=== PATIENT | female | born 1975 | race Asian ===

== ENCOUNTER 2017-05-15 21:00 | Inpatient (IN) | payer BC ==
[2017-05-15] MEDS ORDERED: Methylergonovine 0.2 MG/1 ML Amp IM PRN (23:31)
[2017-05-15] MEDS ORDERED: Carboprost Tromethamine 250 MCG/1 ML Amp IM PRN (23:31)
[2017-05-15] MEDS ORDERED: Acetaminophen 325 MG Tab PO PRN (23:31)
[2017-05-15] MEDS ORDERED: Lactated Ringers 500 ML IV ONE (23:31)
[2017-05-15] MEDS ORDERED: Misoprostol 400 MCG (4 X 100 MCG TAB) RECTAL PRN (23:31)
[2017-05-15] MEDS ORDERED: fentaNYL 100 MCG/2 ML SDV IVPUSH PRN (23:31)
[2017-05-15] MEDS ORDERED: Lidocaine 1% 30 ML SDV INJECT PRN (23:31)
[2017-05-15] MEDS ORDERED: Nalbuphine 20 MG/1 ML Amp IVPUSH PRN (23:31)
[2017-05-15] MEDS ORDERED: Ondansetron 4 MG/2 ML SDV IV PRN (23:31)
[2017-05-15] MEDS: Lactated Ringers 1,000 ML IV SCH (23:35)
[2017-05-15] MEDS ORDERED: Oxytocin/Normal Saline 30 UNIT/500 ML BAG IV SCH (23:45)
[2017-05-16] MEDS ORDERED: Nalbuphine 20 MG/1 ML Amp IM PRN ×2 (00:29→00:36)
[2017-05-16] MEDS ORDERED: fentaNYL 100 MCG/2 ML SDV ONE (02:24)
[2017-05-16] MEDS ORDERED: EPINEPHrine 1 MG/ML SDV ONE (02:24)
--- NOTE | 2017-05-16 02:55 | PCM.SN ---
- Free Text/Narrative Note: Intrathecal, sitting position, sterile prep and drape. 1% lidocaine w bicarb for skinwheal to L2 L3 interspace, introducer, 24 ga pencan x1. Pos CSF, neg heme, neg parasthesia. 0.1 ml pf 1:1000 epi, 0.4 ml pf ns , 15 mcg pf sufenta, 35 mcg pf fentanyl, and 6 mg of 0.75% pf bupivacaine injected after CSF aspiration. Pt to L lateral position. Procedure time 9260 to 3600
[2017-05-16] MEDS: Lactated Ringers 1,000 ML IV SCH ×5 (03:01→20:47)
[2017-05-16] MEDS: ePHEDrine 50 MG/ML SDV IVPUSH ONE ×2 (03:44→04:14)
[2017-05-16] MEDS ORDERED: ceFAZolin 2 GM in Premix Bag 1 BAG IV ONE (09:01)
[2017-05-16] MEDS ORDERED: Citric Acid/Sodium Citrate Solution 30 ML Cup PO ONE (09:01)
--- NOTE | 2017-05-16 09:06 | PCM.PRNOTE ---
- Free Text/Narrative Note: Section Operative Report Date of Surgery: 05/16/2017 Surgeon: Marnie Kidd MD Property Administrator: Lucian Portillo MD Pre-Operative Diagnosis: at 38w1d, failure to descend Maternal fatigue Post-Operative Diagnosis: at 38w1d, failure to descend Maternal fatigue hemorrhage Procedure Performed: Primary low transverse section Anesthesia: Spinal EBL: 1500 mL IVF: 1700 mL Drains: Traore catheter with 150 mL of urine output Specimens: None Complications: None apparent Findings: Live female infant in breech position; APGARS: 9 at 1 minutes and 9 at 5 minutes. Weight: 3585 grams or 7 pounds 14.6 ounces. Normal uterus, tubes , and ovaries. Indication and Consent: Patient progressed to complete dilation and pushed for over 2 hours with no progress then last 30-40 minutes of pushing. A vacuum was applied for 3 contractions but then was unable to be replaced due to caput and positioning. Patient was also placed in hands and knees position with no success. Due to lack of progress and maternal fatigue, the decision was made to proceed with delivery. She was counseled on the risks of . The patient understood that the risks of section include, but are not limited to, visceral or vascular injury, infection, blood loss and need for blood transfusion, prolonged hospitalization, and reoperation. The patient stated understanding and desired to proceed. All questions were answered. Procedure in Detail: The patient was taken to the operating room and spinal anesthesia was performed. Two grams of cefazolin (Ancef) were given for infection prophylaxis. She was then prepped and draped in routine fashion in dorsal supine position with a left puri tilt. Traore catheter and pneumoboots were placed. A Pfannenstiel skin incision was made with a scalpel. The incision was carried down to the fascia sharply. The fascia was incised and extended laterally. The superior aspect of the fascia was grasped with Kye clamps; the underlying rectus muscle and pyramidalis was dissected off with sharp and blunt technique. In a similar fashion, the inferior aspect of the fascia was elevated with Kye clamps and the rectus muscle was dissected off. Hemostasis was achieved with the Bovie. The rectus musculature was in the midline down to the level of the pubic symphysis. Pre-peritoneal fatty tissue was bluntly dissected to expose the peritoneum. The peritoneum was found to be free of adherent bowel or bladder tissue and entered bluntly. The peritoneal opening was then extended superiorly and inferiorly to the bladder reflection with good visualization of the bladder. The Gato retractor was inserted. Intraabdominal survey revealed scant, clear peritoneal fluid and thinned-out lower uterine segment. The vesicouterine peritoneum was opened with a scissors and the bladder flap was developed. The lower uterine segment was incised with a scalpel. The amniotic sac was ruptured with an Allis clamp and meconium stained fluid was noted. The uterine incision was extended bluntly with lateral and upward traction. The fetus was in vertex. The headwas elevated out of the maternal pelvis with special attention paid to avoid using the uterine incision as a fulcrum. The infant was delivered with minimal difficulty. Bulb suctioning of the infant's nose and mouth was performed on the operative field. Cord blood was collected. The cord was clamped and cut in standard fashion, and the was handed over to the awaiting nursery staff. IV oxytocin was initiated to facilitate uterine contractions. The placenta was delivered intact with manual message of the uterine fundus along with gentle cord traction. The inside of the uterus was gently wiped with a lap sponge to assure complete removal of remaining products of conception. The uterine incision was closed with 0 -Vicryl suture in a running locked fashion. A second imbricating layer of 0-Vicryl was also placed. Additional suture were placed along the left corner of the uterus as there was a significant bleeding from a vessel. The incision was inspected and hemostasis was achieved. The ovaries and tubes were visualized and found to be normal. The blood clots and fluid were wiped out of the abdomen and pelvis with moist laparotomy sponges. The uterine incision was re-inspected along with all other incised surfaces and good hemostasis was confirmed. The Gato retractor was removed. Peritoneal layer was closed with 2-0 Vicryl. The fascia was then closed with 2-0 looped PDS suture with care not to include any underlying abdominal contents. The skin was closed with yesenia. Sponge and instrument counts were reported as correct times two. Pt tolerated procedure well and was taken to PACU in stable condition. Marnie Kidd MD
--- NOTE | 2017-05-16 09:43 | HP ---
CHIEF COMPLAINT: Contractions that began earlier today and continued into this evening HISTORY OF PRESENT ILLNESS: The patient is a 41-year-old, G4, P 3-0-0-2, regularly a patient of Dr. Hooker, currently at 38 and / day of intrauterine confirmed with 23 and 1/7th week ultrasound. Contractions began earlier today and continued into this evening, around 6 PM were noted to be 2 to 3 minutes apart and her decided to bring her in. She denies any vaginal bleeding or leakage of fluid. movement has been good. She denies any fevers or chills, nausea or vomiting, shortness of breath or chest pain, headaches, or blurry vision. HISTORY: She has had 3 previous pregnancies. The first was a term delivery at 40 weeks and 0 days gestation on 11/24/1994, delivered via normal spontaneous vaginal delivery in the [facility]. weight 3538 g. The patient denies any , intrapartum, or complications with this delivery. The second was a term, 40 weeks and 0 days, normal spontaneous vaginal delivery on 02/13/1997 in the [facility]. weight 3039 g. The patient denies any , intrapartum, or complications with that delivery. The third was a term, 38 weeks and 0 days normal spontaneous vaginal delivery on 05/31/1999 in the [facility]. weight was 3084 g. The patient denies any or complications with this delivery, but notes that at time of delivery she was told there was a 50-50 chance for her and her baby to survive for unknown reasons and that they wanted to transfer her. She denies any complications with this . PAST MEDICAL HISTORY: History of chickenpox as a child. MEDICATIONS: 1. vitamins. 2. Iron supplementation. 3. Vitamin B6. 4. Fish oil plus vitamin D. ALLERGIES: No known allergies. PAST SURGICAL HISTORY: No pertinent surgical history. FAMILY HISTORY: Mother, heart disease. Oldest son, TB meningitis as an and at age 10 from complications. Negative for defects, multiple seizures, cystic fibrosis, bleeding problems, clotting disorders, or Down syndrome. SOCIAL HISTORY: Lives in [place] with her , Thierno. in 07/2014, met through the online dating site and he is a retired grant. She moved here in 06/2015 from the [facility] and this is their first child together. They are in the process of trying to move more of her family to [place] for better job opportunities. Slovak is not her first language and so, there are some language barrier issues. REVIEW OF SYSTEMS: Pertinent positives and negatives as listed under the HPI. PHYSICAL EXAMINATION: Vital signs: Temperature 97.8 degrees Fahrenheit, heart rate 86, blood pressure 112/80, and respiratory rate 20. General: Pleasant, well-appearing female. HEENT: Atraumatic. Anicteric sclerae. Oropharynx without erythema. No obvious deformities in external ears. Neck: Supple without adenopathy. Heart: Regular rate and rhythm, S1 and S2. Lungs: Clear to auscultation bilaterally. No increased work of breathing, rales, rhonchi, or wheezes noted. Abdomen: Gravid, soft, and nontender. Neurologic: No obvious neurologic deficits. No clonus. Cervical: 4 cm dilated, 80% effaced, vertex suspected, -2 station. Extremities: No edema, erythema, or tenderness noted in any extremities. Skin: Warm and dry. Well perfused. LABORATORY DATA: Blood type, B positive. Antibody screen negative. Rubella immune. Syphilis negative. Hepatitis B negative. HIV negative. Gonorrhea and chlamydia, not detected. TSH normal at 1.48. Hepatitis C negative. Wet prep negative for Trichomonas, clue cells, fungal elements, and budding yeast. One-hour glucose passed. GBS negative. heart monitoring: heart tones tracing at 130 beats per minute at baseline. Moderate [id number]-jq-[id number] variability and accelerations are noted. Manassa tracing contractions every 5 minutes. ASSESSMENT: 1. Intrauterine at 38 and 1/7th's week gestation confirmed with 23 and 1/7th's week ultrasound. 2. G4, P 3-0-0-2. 3. Blood type B positive, rubella immune, GBS negative. 4. Advanced maternal age. 5. Anemia during . PLAN: Admit the patient for observation to Labor and Delivery floor. We will serially evaluate the patient and determine if she is in true labor. The patient has been informed of the plan, and she is in agreement and her questions have been answered. The history and physical assessment and plan are per Dr. Kidd and this note is being scribed for Dr. Kidd. [facility] /[id number] Agree with medical student assessment and plan. Patient was seen and examined by me. Assessment and plan are per my direction. Marnie Kidd MD [facility]
[2017-05-16] MEDS ORDERED: Naloxone 2 MG/2 ML Syringe IVPUSH PRN (10:48)
[2017-05-16] MEDS ORDERED: diphenhydrAMINE 50 MG/ML SDV IVPUSH PRN (10:48)
[2017-05-16] MEDS ORDERED: ePHEDrine 50 MG/ML SDV IVPUSH PRN (10:48)
[2017-05-16] MEDS ORDERED: Acetaminophen/oxyCODONE 325-5 MG Tab PO PRN (10:48)
[2017-05-16] MEDS: Simethicone 80 MG Tab.Chew PO SCH ×3 (15:12→23:33)
[2017-05-16] MEDS ORDERED: Oxytocin/Normal Saline 30 UNIT/500 ML BAG IV SCH (15:30)
[2017-05-16] MEDS: Ondansetron 4 MG/2 ML SDV IV PRN (15:43)
[2017-05-16] MEDS ORDERED: Ketorolac 30 MG/ML SDV IVPUSH ONE (20:33)
[2017-05-17] MEDS: Ketorolac 30 MG/ML SDV IVPUSH SCH ×3 (02:37→15:17)
[2017-05-17] MEDS: Lactated Ringers 1,000 ML IV SCH ×2 (04:13→06:04)
[2017-05-17] MEDS: Prenatal Multivitamin with Calcium/Folic Acid/Iron Tab PO SCH (08:50)
[2017-05-17] MEDS: Simethicone 80 MG Tab.Chew PO SCH ×4 (08:50→22:00)
[2017-05-17] MEDS: Docusate Sodium 100 MG Cap PO PRN ×2 (08:50→23:23)
--- NOTE | 2017-05-17 08:58 | DEL ---
DATE: 05/16/2017 PREDELIVERY DIAGNOSES: 1. Intrauterine at 38-2/7 weeks' gestation confirmed with 23-1/7 weeks' ultrasound. 2. 4, para 3-0-0-2. 3. Blood type B positive, rubella immune, and group B Streptococcus negative. 4. Advanced maternal age. 5. Anemia during . POSTDELIVERY DIAGNOSES: 1. Intrauterine at 38-2/7 weeks' gestation confirmed with 23-1/7 weeks' ultrasound. 2. 4, para 3-0-0-2. 3. Blood type B positive, rubella immune, and group B Streptococcus negative. 4. Advanced maternal age. 5. Anemia during . 6. Failure of fetus to descend. 7. Maternal fatigue. PROCEDURE PERFORMED: Pitocin augmentation and attempted vacuum-assisted delivery. ANESTHESIA: The patient did receive an intrathecal in the first stage of labor. SUMMARY OF EVENTS: The patient is a 41-year-old G4, P3-0-0-2, presenting initially with intrauterine at 38-1/7 weeks' intrauterine gestation on the evening of 05/15/2017. She presented with contractions that had begun earlier in the day on the and continued into the evening. At 6:00 p.m., it was noted that the contractions were 2 to 3 minutes apart, and her brought her in to be evaluated. She was admitted for observation to Labor and Delivery floor for serial evaluation to determine if she was in true labor. She was noted to have regular contractions, was having cervical change and subsequently spontaneous rupture of membranes. The intrathecal was given, and the patient continued to be serially evaluated, requiring 2 doses of ephedrine for low blood pressures. Around 7:00 a.m. on the morning of 05/16/2017, the patient was found to be complete and began pushing with contractions. Dr. Kidd and I were called to the room. We both donned sterile gown and gloves and evaluated the patient in the second stage of labor. With pushing with contractions, vertex was suspected, and large caput was noted. The patient pushed for approximately 2 hours. A vacuum-assisted delivery was attempted and was not successful. The vacuum was applied for a total of 8 minutes. Good descent was initially noted. After initial descent, the low profile Kiwi vacuum could no longer be placed due to head position. The soft-cup vacuum was applied but could not maintain suction due to caput and hair. Vacuum delivery was abandoned. Patient was placed on hand and knees and pushed for an additional 20 minutes. She was then returned to supine position. No descent of the head was noted. The decision was made to proceed to section due to failure of fetus to descend and maternal fatigue. Please see operative note. The history and assessment are per Dr. Kidd and this note is being scribed per Dr. Kidd. MOD /[id number] Agree with student note above. I was present for the entire procedure. Note has been edited by me. Marnie Kidd MD [facility]ENTER[facility]artha
--- NOTE | 2017-05-17 10:01 | PN ---
DATE: 05/17/2017 SUBJECTIVE: Postop day 1 status post primary low-transverse section. Concerns per nursing staff include low hemoglobin levels and low urine output overnight, requiring a bolus of fluid. No other concerns per nursing staff. Concerns per patient include increased incisional pain. This pain is mostly well controlled on current medications. No other concerns per patient. She is ambulating and tolerating a general diet. Traore catheter still in place. She denies fevers or chills, headaches or blurry vision, shortness of breath or chest pain, sharp abdominal pains, or erythema or tenderness in any of her extremities. She also denies dizziness or lightheadedness. She had some nausea and vomited yesterday evening following surgery but this has subsided entirely. She is passing gas but has not had a bowel movement. She notes mild lochia. OBJECTIVE: Vital Signs: Temperature 98.6 Fahrenheit, heart rate 83, blood pressure 95/62, respiratory rate 18, and oxygen saturation 98%. General: Pleasant, well-appearing female. Heart: Regular rate and rhythm, S1 and S2. 2/6 holosystolic murmur over the upper left sternal border, presumed to be a flow murmur due to anemia. Lungs: Clear to auscultation bilaterally. No increased respiratory effort, rales, rhonchi, or wheezing noted. Abdomen: Soft, mildly tender to palpation in the lower abdomen, nondistended. The uterus is firm and 1 fingerbreadth below the umbilicus. No excessive tenderness by palpation. The dressing over incision is clean, dry, and intact. Neurologic: No obvious neurologic deficits. Extremities: Trace edema in the upper and lower extremities bilaterally. No tenderness or erythema in any extremity. Skin: Warm, dry, and well perfused. Normal color, no pallor. LABORATORY DATA: Drawn this morning. White blood cell count 17.1, hemoglobin 7.0, platelet count 162, and neutrophil percent 81.7. ASSESSMENT: 1. Postoperative day 1 status post primary low-transverse section. 2. 4, para 4-0-0-3. 3. Advanced maternal age. 4. Anemia in . 5. hemorrhage, 1500 mL. Anemia of blood loss. 6. Blood type B positive, rubella immune, group B streptococcus negative. PLAN: Initiate iron supplementation 325 mg b.i.d. and vitamin. Possibility of needing a blood transfusion if she becomes symptomatic later today. Risks and benefits were discussed with the patient and she expressed understanding. Discussed risk of transfusion reaction, risk of contraction of blood born disease or new antibodies, fluid overload. Also discussed benefits of treating severe anemia to help with symptoms, , and prevent high output cardiac failure. We will closely monitor for signs and symptoms related to her anemia. Continue routine and postoperative cares. Please see orders for further details. The plan has been discussed with the patient and she is in agreement. The history, physical, and assessment and plan are per Dr. Bocanegra and this note is being scribed for Dr. Bocanegra. Patient seen and examined. Agree with note scribed on my behalf by Stephanie Tristan MS3 -billiard table assembler 05/18/17 0552 MODL /[id number] MTDD
[2017-05-17] MEDS: Acetaminophen/oxyCODONE 325-5 MG Tab PO PRN ×3 (11:42→22:00)
[2017-05-17] MEDS: Ferrous Sulfate 325 MG Tab PO SCH ×2 (11:42→17:45)
[2017-05-17] MEDS: Sodium Chloride 0.9% 10 ML Syringe FLUSH PRN (15:16)
[2017-05-17] MEDS ORDERED: Ferrous Sulfate 325 MG Tab PO SCH (18:00)
[2017-05-17] MEDS: Ibuprofen 800 MG Tab PO PRN (23:23)
[2017-05-18] MEDS: Acetaminophen/oxyCODONE 325-5 MG Tab PO PRN ×5 (02:00→21:37)
[2017-05-18] MEDS: Simethicone 80 MG Tab.Chew PO SCH ×4 (08:43→21:35)
[2017-05-18] MEDS: Prenatal Multivitamin with Calcium/Folic Acid/Iron Tab PO SCH (08:46)
[2017-05-18] MEDS: Ibuprofen 800 MG Tab PO PRN ×2 (08:46→21:35)
[2017-05-18] MEDS: Docusate Sodium 100 MG Cap PO PRN ×2 (08:54→21:35)
--- NOTE | 2017-05-18 08:55 | PN ---
DATE: 05/18/2017 SUBJECTIVE: Postoperative day #2, status post primary low transverse section. The patient did receive 2 units of blood overnight for symptoms of anemia including lightheadedness, dizziness, nausea without vomiting, visual changes, and shortness of breath. This morning, the patient states that these symptoms have improved, although she does still have some lightheadedness and dizziness when ambulating. No other concerns per nursing staff. No concerns per patient. She continues to have mild incisional pain that is improving and well controlled on current medications. She is ambulating and tolerating a general diet. She denies headaches or blurry vision, shortness of breath or chest pain, nausea or vomiting, sharp abdominal pains, dysuria, or erythema or tenderness in any extremity. She notes edema in her upper and lower extremities bilaterally. She continues to pass gas but has not had a bowel movement. She notes mild lochia. OBJECTIVE: Vital Signs: Temperature 98.8 Fahrenheit, heart rate 65, blood pressure 105/66, respiratory rate 16, and oxygen saturation 98%. General: A pleasant well-appearing female. Heart: Regular rate and rhythm. S1 and S2. 2/6 holosystolic murmur noted over the upper left sternal border, presumed to be a flow murmur due to anemia. Lungs: Bilateral crackles, right worse than left. No increased respiratory effort, rhonchi, or wheezing noted. Abdomen: Soft, appropriately tender in the lower abdomen, nondistended. The uterus is firm and at the level of the umbilicus. No excessive tenderness by palpation. The dressing over the incision is clean, dry, and intact. Neurologic: No obvious neurologic deficits. Extremities: Trace edema in the upper and lower extremities bilaterally. No tenderness or erythema. Skin: Warm, dry, and well perfused. Normal color. LABORATORY DATA: Drawn this morning: White blood cell count 14.1, Hemoglobin 10.3, Platelets 166 ASSESSMENT: 1. Postoperative day #2, status post primary low transverse section. 2. G4, P4-0-0-3. 3. Advanced maternal age. 4. Anemia in . 5. hemorrhage, 1500 mL anemia of blood loss. 6. Blood type B positive, rubella immune, and Group B streptococcus negative. PLAN: Incision dressing removed by Dr. Bocanegra, instructed the patient to shower , and will apply Aquacel dressing over her incision to be kept on until her follow-up visit for staple removal. We will closely monitor for signs and symptoms related to her anemia. Continue routine and postoperative cares. Please see orders for further details. The plan has been discussed with the patient, and she expressed understanding and is in agreement. We anticipate discharge tomorrow. The history, physical, assessment and plan are per Dr. Bocanegra, and this note is being scribed for Dr. Bocanegra. Patient seen and examined. Agree with note as described on my past by Stephanie Tristan MS3. -metal spray operator 05/18/17 1442 MODL /[id number] MTDD
[2017-05-18] MEDS: Ferrous Sulfate 325 MG Tab PO SCH ×2 (09:45→17:46)
[2017-05-18] MEDS: Ondansetron 4 MG/2 ML SDV IV PRN (12:45)
[2017-05-18] MEDS: Sodium Chloride 0.9% 10 ML Syringe FLUSH PRN ×2 (12:46→21:33)
[2017-05-19] MEDS: Ibuprofen 800 MG Tab PO PRN (04:54)
[2017-05-19] MEDS: Acetaminophen/oxyCODONE 325-5 MG Tab PO PRN ×2 (04:55→08:38)
[2017-05-19] MEDS: Prenatal Multivitamin with Calcium/Folic Acid/Iron Tab PO SCH (08:37)
[2017-05-19] MEDS: Simethicone 80 MG Tab.Chew PO SCH (08:37)
[2017-05-19] MEDS: Ferrous Sulfate 325 MG Tab PO SCH (08:37)
[2017-05-19] MEDS: Docusate Sodium 100 MG Cap PO PRN (08:37)
[2017-05-19] MEDS ORDERED: Morphine PF 1 MG/ML Amp ONE (11:02)
[2017-05-19] MEDS ORDERED: ePHEDrine 50 MG/ML SDV IV ONE (11:02)
[2017-05-19] MEDS ORDERED: Dexamethasone 4 MG/ML SDV IV ONE (11:02)
[2017-05-19] MEDS ORDERED: Ondansetron 4 MG/2 ML SDV IV ONE (11:02)
[2017-05-19] MEDS ORDERED: Lactated Ringers 1,000 ML IV ONE (11:02)
[2017-05-19] MEDS ORDERED: fentaNYL 100 MCG/2 ML SDV ITHECAL ONE (11:08)
[2017-05-19] MEDS ORDERED: EPINEPHrine 1 MG/ML SDV ONE (11:08)
--- NOTE | 2017-05-20 04:55 | DISCH ---
ADMITTING DIAGNOSES: 1. Intrauterine at 38 and 1/7 weeks' gestation confirmed with a 23 and 1/7 week's ultrasound. 2. 4, para 3-0-0-2. 3. Advanced maternal age. 4. Anemia in . 5. Blood type B positive, rubella immune, Group B streptococcus negative. DISCHARGE DIAGNOSES: 1. Intrauterine at 38 and 2/7 weeks' gestation confirmed with a 23 and 1/7 week's ultrasound, delivered. 2. Blood type B positive, rubella immune, Group B streptococcus negative. 3. 4, para 4-0-0-3. 4. Primary low transverse section due to failure of fetus to descend and maternal fatigue. 5. Advanced maternal age. 6. Anemia in . 7. hemorrhage, 1500 mL, anemia of blood loss. 8. Blood transfusion x2 due to symptomatic anemia. PROCEDURE PERFORMED: Pitocin augmentation. Attempted vacuum-assisted delivery followed by primary low transverse section per Dr. Kidd, no complications. Intrathecal in labor, spinal for . Blood transfusion 2 units SUMMARY OF HOSPITAL COURSE: The patient was admitted on the above day with the above diagnosis, and after a failed trial of labor due to failure of fetus to descend and maternal fatigue, she underwent a primary low transverse section yielding a female scores 9 and 9, weighing 7 pounds 15 ounces, 3585 g with an EBL of 1500 mL under spinal anesthesia. Postoperative day 1 and 2, please see progress note. Postoperative day 3, the date of discharge, the patient was tolerating p.o., ambulating, urinating with mild dysuria and passing flatus. No bowel movement yet. She has some minimal incisional pain that is well controlled on current medications. She continues to have some mild lightheadedness when ambulating, but otherwise, her anemia is asymptomatic. She denies fevers or chills, shortness of breath, nausea or vomiting, sharp abdominal pains or erythema or tenderness in any extremity. She notes that the swelling in her upper and lower extremities bilaterally is improving. She also notes some intermittent left-sided chest pain when she holds baby, suspect this is musculoskeletal in origin. She had questions pertaining to the use of her breast pump. The patient did receive 2 units of blood on postop day 1 for symptoms related to her anemia. She is and maternal child bonding is appropriate. DISCHARGE CONDITION: Good Vital Signs: Temperature 99.1 Fahrenheit, heart rate 68, blood pressure 123/68, respiratory rate 18, and oxygen saturation 96%. Lungs: Bibasilar crackles, improved from yesterday. Normal respiratory effort. Heart: S1 and S2, 2/6 holosystolic murmur noted at the left upper sternal border, presumed to be a flow murmur due to her anemia. Abdomen: Soft, nondistended, mildly tender to palpation in the lower abdomen. Uterus is firm and at the level of the umbilicus. No excessive tenderness to palpation. Aquacel dressing is clean, dry, and intact. Extremities: Trace edema in upper and lower extremities bilaterally, improving. No erythema or tenderness in any extremity. LABORATORY DATA: Drawn on May 18, 2017. Postop day #2; white blood cell count 14.1, hemoglobin 10.3, and platelets 166. Post transfusion. DISCHARGE INSTRUCTIONS: 1. Diet as tolerated. 2. Activity: No lifting more than 20 pounds, no sit ups or straining. Pelvic rest for the next 6 weeks with immediate return to fertility was discussed with the patient. 3. Reasons to go to the emergency room were discussed including, but not limited to temperature greater than 100.4 Fahrenheit, foul-smelling discharge, red hot tender breasts or increased vaginal bleeding, increasing pain, drainage, or redness around her incision. 4. Dr. Bocanegra provided instruction on dressing care, consisting of keeping Aquacel dressing applied until it is removed in clinic Wednesday for staple removal. After that, patient can use light pads to cover incision as needed, to be removed before showering. 5. Nursing staff provided instruction on use of breast pump. DISCHARGE MEDICATIONS: 1. [id number] Tylenol or ibuprofen for pain. 2. Iron sulfate 325 b.i.d. x6 weeks. 3. vitamins x6 weeks. It was discussed with the patient in the interim reasons to return or go to the emergency room in regard to her infant. DISPOSITION: Home FOLLOW UP: 2 days from now on Wednesday, May 21, 2017, for staple removal for mother and well-child check for baby. The patient expressed understanding and agrees with the above treatment plan. The history, physical, assessment, and plan are per Dr. Bocanegra, and this note is being scribed for Dr. Bocanegra. Patient seen and examined. Agree with note as described on my behalf by Stephanie Tristan, MS3. -dance hall hostess 05/20/17 1304 MODL /[id number] MTDD
== END 2017-05-19 11:56 | disposition home or self-care (01) | DRG 540 ==
LOC: DL.OBCHECK 21:00 → DL.OB 22:56 → OBSVTOIN 05-16 10:13
PROVIDERS: ADMIT Family Medicine; ATTEND Family Medicine
PROC: 10D00Z1 Extraction of Products of Conception, Low, Open Approach (ICD-10-PCS; principal; 2017-05-16)
PROC: 00HU33Z Insertion of Infusion Device into Spinal Canal, Percutaneous Approach (ICD-10-PCS; 2017-05-16)
PROC: 3E0R3BZ Introduction of Anesthetic Agent into Spinal Canal, Percutaneous Approach (ICD-10-PCS; 2017-05-16)
DX: O64.8XX0 Obstructed labor due to other malposition and malpresentation, not applicable or unspecified (principal); Z3A.38 38 weeks gestation of pregnancy; Z37.0 Single live birth; O66.5 Attempted application of vacuum extractor and forceps; O75.81 Maternal exhaustion complicating labor and delivery; O72.1 Other immediate postpartum hemorrhage; O99.02 Anemia complicating childbirth
CPT/HCPCS: 36415; 36430; 85025; 85027; 86850; 86900; 86901; 86920; 86922; 94010; A9270-GY; J0171; J0690; J1100; J1200; J1885; J2274; J2300; J2405; J2590; J3010; J7050; J7120; P9016

== ENCOUNTER 2018-05-30 11:56 | Day surgery (SDC) | payer BC, MEDICAID ==
[2018-05-30] MEDS ORDERED: Propofol 200 MG/20 ML SDV IV ONE (11:57)
[2018-05-30] MEDS ORDERED: fentaNYL 100 MCG/2 ML SDV IV ONE (11:57)
[2018-05-30] MEDS ORDERED: Dexamethasone 4 MG/ML SDV IV ONE (11:57)
[2018-05-30] MEDS ORDERED: Lidocaine 2% 20 ML MDV INJECT ONE (11:57)
[2018-05-30] MEDS ORDERED: Ondansetron 4 MG/2 ML SDV IV ONE (11:57)
[2018-05-30] MEDS ORDERED: Ketorolac 30 MG/ML SDV IVPUSH ONE (11:57)
[2018-05-30] MEDS ORDERED: Midazolam 1 MG/ML 2 ML SDV IV ONE (11:57)
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
[2018-05-30] MEDS ORDERED: Lactated Ringers 1,000 ML IV SCH (12:30)
[2018-05-30] MEDS ORDERED: ceFAZolin 2 GM in Premix Bag 1 BAG IV ONE (12:46)
[2018-05-30] MEDS ORDERED: Sodium Chloride 0.9% 10 ML Syringe FLUSH PRN (12:46)
[2018-05-30] MEDS ORDERED: Oxytocin/Normal Saline 30 UNIT/500 ML BAG IV SCH (13:00)
[2018-05-30] MEDS ORDERED: Ferric Subsulfate Topical Soln 8 GM (8 ML) Bottle ONE (13:54)
[2018-05-30] MEDS ORDERED: Silver Nitrate Applicator Each ONE (13:54)
[2018-05-30] MEDS ORDERED: Oxytocin/Normal Saline 30 UNIT/500 ML BAG ONE (13:54)
[2018-05-30] MEDS ORDERED: Ferric Subsulfate Topical Soln 8 GM (8 ML) Bottle TOP ONE (15:15)
--- NOTE | 2018-05-30 16:11 | PCM.PRNOTE ---
- Free Text/Narrative Note: Operative Report 05/30/18 Start: 1503 Stop: 1516 Preoperative Diagnosis: incomplete Postoperative Diagnosis: same Procedure Performed: Suction Dilation and Curettage Anesthesia: general Surgeons: Dr. Hernandez and Dr. Bocanegra Franchise Broker: Gato Jacobson MS3 Specimens: Intrauterine contents Complications: none apparent Drains: Straight catheter placed at the beginning of case with return of minimal clear urine output Estimated Blood Loss: 100 cc Findings: incomplete with odor consistent with infection Indication for procedure: Incomplete . Risks, benefits, indications and alternatives of the chosen procedure were discussed in detail as outlined in the preoperative history and physical. Procedure in Detail: The patient was taken to the operating room where anesthesia was obtained. She was prepped and draped in routine fashion in dorsal lithotomy position. Sterile speculum was placed in the vagina and the anterior lip of the cervix was than grasped with a single tooth tenaculum. The uterus was sounded to 4 cm's. The cervix was dilated to allow passage of a 12 mm suction curette. The curette was advanced to the uterine fundus. Tissue consistent with products of conception was returned. Additional pass with the suction curette was performed. The sharp curette was than advanced to the uterine fundus and gentle but firm traction was placed against it along all uterine surfaces until good uterine cry was noted. Suction curette was once again advanced to empty the uterus of any remaining products. A moderate amount of tissue returned and was sent to pathology. The uterus was sounded to 9 cm's after the procedure. All instruments were removed from the uterus, cervix and vaginal after hemostasis was noted. The patient tolerated the procedure well. Sponge, lap, and needle counts were reported as correct times two. The patient received antibiotics preoperatively. She will be followed with routine post operative cares and we anticipate discharge later today when ambulating, voiding, tolerating regular diet and having her pain controlled. She was given doxycycline and metronidazole for 7 days post op.
== END 2018-05-30 18:30 | disposition home or self-care (01) ==
LOC: DL.SDS 11:56
PROVIDERS: ATTEND Family Medicine
DX: O03.4 Incomplete spontaneous abortion without complication (principal)
CPT/HCPCS: 36415; 85025; J0690; J1100; J1885; J2250; J2405; J2590; J2704; J3010; J7120

== ENCOUNTER 2018-06-02 14:18 | Emergency (ER) | payer MEDICAID ==
--- NOTE | 2018-06-02 14:25 | EDM.PDOC ---
ED HPI GENERAL MEDICAL PROBLEM - General Stated Complaint: NECK AND SHOULDER PAIN Time Seen by Provider: 06/02/18 14:25 Source of Information: Reports: Patient, RN, RN Notes Reviewed History Limitations: Reports: No Limitations - History of Present Illness INITIAL COMMENTS - FREE TEXT/NARRATIVE: Pt to ER with c/o left upper back pain, left sided neck pain, and pain wrapping into the left anterior chest wall. Patient states she had a D&C on 05/30/18. She states she has been having the pain since that time. She denies lifting anything recently, but she does hold her daughter on that side to feed her a bottle (child is 1 yr old). She denies any previous health problems, and only takes iron supplements, vitamin D and multivitamins for medications. Currently taking Doxycycline after D & C. Patient denies fever, chills, N/V/D. Does admit to SOB at times. She denies a blood clot in the past. Onset: Gradual Left Neck Pain Score (Numeric/FACES): 5 - Related Data Allergies Allergy/AdvReac Type Severity Reaction Status Date / Time No Known Allergies Allergy Verified 06/02/18 14:24 Home Meds: Home Meds Docusate Sodium [Colace] 100 mg PO Q12H PRN cap 05/18/17 [Rx] Ferrous Sulfate 325 mg PO BIDMEALS tablet 05/18/17 [Rx] Ibuprofen [IJD: Ibuprofen] 600 mg PO Q6H PRN tablet 05/18/17 [Rx] Cholecalciferol (Vitamin D3) [Vitamin D3] 1,000 units PO DAILY 05/30/18 [History ] Multivitamin with Minerals [Multivitamins with Minerals] 1 tab PO DAILY [History] Past Medical History - Past Health History Medical/Surgical History: Denies Medical/Surgical History HEENT History: Reports: Impaired Vision Other HEENT History: WEARS GLASSES. 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: Musculoskeletal History: Reports: Other (See Below) Other Musculoskeletal History: NERVE PAIN IN RIGHT WRIST, GOES TO PT Neurological History: Reports: Other (See Below) Other Neuro History: STROKE RIGHT SIDE AT AGE 34 Psychiatric History: Reports: Depression Other Psychiatric History: DEPRESSION IN THE PAST Endocrine/Metabolic History: Reports: None Hematologic History: Reports: Anemia Immunologic History: Reports: None Oncologic (Cancer) History: Reports: None Dermatologic History: Reports: None - Infectious Disease History Infectious Disease History: Reports: Chicken Pox - Past Surgical History HEENT Surgical History: Reports: None Cardiovascular Surgical History: Reports: None GI Surgical History: Reports: None Female Surgical History: Reports: Section Neurological Surgical History: Reports: None Musculoskeletal Surgical History: Reports: None Social & Family History - Family History Cardiac: Reports: Other (See Below) Other Cardiac Family History: mother- heart disease Respiratory: Reports: Other (See Below) Other Respiratory Family Hisory: first child had TB meningitis as an and at age 12 of complications - Caffeine Use Caffeine Use: Reports: Coffee ED ROS GENERAL - Review of Systems Review Of Systems: ROS reveals no pertinent complaints other than HPI. ED EXAM, UPPER BACK/NECK PAIN - Physical Exam Exam: See Below Exam Limited By: Language Barrier General Appearance: Alert, WD/WN, No Apparent Distress Eye Exam: Bilateral Eye: EOMI, Normal Inspection Ears Exam: Normal External Exam, Hearing Grossly Normal Nose Exam: Normal Inspection Throat/Mouth Exam: Normal Inspection, Normal Voice, No Airway Compromise Head Exam: Atraumatic, Normocephalic Neck Exam: Non-Tender, Full Range of Motion, Normal Alignment, Normal Inspection Nexus Criteria: No: Posterior, Midline Cervical Tenderness, Evidence of Intoxication, Altered Level of Consciousness, Focal Neurological Deficit, Painful Distraction Injuries Cardiovascular/Respiratory: Regular Rate, Rhythm, No M/R/G, Normal Peripheral Pulses, No JVD, Normal Breath Sounds, No Respiratory Distress GI/Abdominal: Normal Bowel Sounds, Soft, Non-Tender (Female) Exam: Deferred Rectal (Female) Exam: Deferred Back Exam: Normal Inspection, Full Range of Motion, NT Extremities: Normal Inspection, Normal Range of Motion, Non-Tender, No Pedal Edema, Normal Capillary Refill Neurologic: installation coordinator II-XII nml As Tested, No Motor/Sensory Deficits, Alert, Normal Mood/Affect, Oriented x 3 Psychiatric: Normal Affect, Normal Mood Skin Exam: Normal Color, Warm/Dry Lymphatic: No Adenopathy EKG INTERPRETATION EKG Date: 06/02/18 Time: 14:41 Rhythm: NSR Rate (Beats/Min): 68 [place]: Normal P-Wave: Present QRS: Normal ST-T: Normal QT: Normal Comparison: NA - No Prior EKG Course - Vital Signs Last Recorded V/S: Last Vital Signs Temp 99.1 F 06/02/18 15:18 Pulse 64 06/02/18 16:16 Resp 16 06/02/18 16:16 BP 111/76 06/02/18 16:16 Pulse Ox 99 06/02/18 16:16 - Orders/Labs/Meds Orders: Active Orders 24 hr Category Date Time Status EKG Documentation Completion [RC] STAT Care 06/02/18 14:40 Active Chest wo Cont [CT] Urgent Exams 06/02/18 15:46 Taken Labs: Laboratory Tests 06/02/18 06/02/18 06/02/18 Range/Units 14:55 14:55 14:55 WBC 7.6 (5.0-10.0) 10^3/uL RBC 3.81 L (4.2-5.4) 10^6/uL Hgb 10.1 L (12.0-16.0) g/dL Hct 31.4 L (37.0-47.0) % MCV 82.4 (80-100) fL MCH 26.5 L (27.0-34.0) pg MCHC 32.2 L (33.0-35.0) g/dL Plt Count 347 (150-450) 10^3/uL Neut % (Auto) 71.8 (42.2-75.2) % Lymph % (Auto) 18.9 L (20.5-50.1) % [place] % (Auto) 7.0 (2-8) % Eos % (Auto) 1.9 (1.0-3.0) % Baso % (Auto) 0.4 (0.0-1.0) % D-Dimer, Quantitative 210 (0-400) ng/mL Sodium 136 (135-145) mmol/L Potassium 3.0 L (3.6-5.0) mmol/L Chloride 101 (101-111) mmol/L Carbon Dioxide 23.0 (21.0-31.0) mmol/L Anion Gap 15.0 BUN 11 (7-18) mg/dL Creatinine 0.8 (0.6-1.3) mg/dL Est Cr Clr Drug Dosing 67.14 mL/min Estimated GFR (MDRD) > 60 BUN/Creatinine Ratio 13.75 Glucose 107 H (74-105) mg/dL Calcium 8.9 (8.4-10.2) mg/dl Total Bilirubin 0.5 (0.2-1.0) mg/dL AST 18 (10-42) IU/L ALT 10 (10-60) IU/L Alkaline Phosphatase 51 (42-121) IU/L Troponin I < 0.02 (0.00-0.02) ng/ml Total Protein 7.3 (6.7-8.2) g/dl Albumin 3.9 (3.2-5.5) g/dl Globulin 3.4 Albumin/Globulin Ratio 1.15 - Radiology Interpretation Free Text/Narrative:: Chest xray: See rad report Departure - Departure Time of Disposition: 16:54 Disposition: Home, Self-Care 01 Condition: Fair Clinical Impression: Abnormal CT scan, chest, Chest wall pain Back pain Qualifiers: Back pain location: thoracic back pain Chronicity: acute Back pain laterality: left Qualified Code(s): M54.6 - Pain in thoracic spine - Discharge Information *PRESCRIPTION DRUG MONITORING PROGRAM REVIEWED*: No *COPY OF PRESCRIPTION DRUG MONITORING REPORT IN PATIENT DANIAL: No Instructions: Nonspecific Chest Pain, [id number], Chest Wall Pain, Easy-to- Read, Incidental Abnormal Radiological Finding Forms: ED Department Discharge Additional Instructions: Dr. Bocanegra's office will call you on Wednesday to set up an appointment. May use Tylenol and/or ibuprofen as directed for pain. Follow up with Dr. Bocanegra as soon as possible - My Orders Last 24 Hours: My Active Orders 06/02/18 14:40 EKG Documentation Completion [RC] STAT 06/02/18 15:46 Chest wo Cont [CT] Urgent - Assessment/Plan Last 24 Hours: My Active Orders 06/02/18 14:40 EKG Documentation Completion [RC] STAT 06/02/18 15:46 Chest wo Cont [CT] Urgent
--- NOTE | 2018-06-02 15:32 | CR ---
Clinical history: 42-year-old female left-sided chest pain. No known trauma but patient had D&C 3 days ago. Interpretation: Abnormal. *Subtle but distinct pulmonary nodule(s), laterally, left midlung (no previous films immediately available for comparison). No abnormal focal lobar oligemia or ipsilateral pleural effusion. Normal cardiac silhouette without cephalization of flow or alveolar edema. No other lung mass or hilar lymphadenopathy and no focal lobar consolidation (infiltrate/atelectasis". Zach thorax unremarkable. No pneumothorax.
[2018-06-02 15:38] LABS: CHLORIDE,CL 101 mmol/L (101-111); SODIUM,NA 136 mmol/L (135-145)
--- NOTE | 2018-06-02 16:54 | CT ---
Clinical history: 42-year-old afebrile Beninese female with left chest pain noted have "mid left lung nodule" on CXR. This woman, with [id number] baby had D&C 3 days ago (serum D dimer only 210). First child reportedly " of tuberculous meningitis". Scan technique: Volume acquisition of data emergency unenhanced CT scan of the chest (bony thorax, lungs and mediastinum) obtained while the patient was lying supine on the Siemens multi slice scanner [place], [place]. All data archived in the PACS system for storage, reformatting and study. Interpretation: Abnormal. 1. *Discrete 7 mm diameter parenchymal lung nodule, anterior segment, left upper lobe. No peripheral pleural contact 2. *Larger, bilobed 10 x 25 mm diameter nodular parenchymal lung mass, with irregular spiculated margins, located in the lingular segment, left upper lobe. No pleural contact, ipsilateral pleural effusion, or significant hilar/mediastinal lymphadenopathy. No central calcifications. 3. No other parenchymal lung nodule or mass lesion. No focal lobar pneumonia or atelectasis/collapse. 4. Normal cardiac silhouette. No pericardial effusion, cephalization of vascular flow, signs of alveolar edema or pleural effusion. 5. Normal caliber thoracic aorta. No aneurysm or dissection. 6. Thoracic spine and bony thorax unremarkable. 7. Gallbladder, unenhanced liver, stomach, spleen, pancreas, adrenal glands and kidneys unremarkable i.e. negative. CONCLUSION: Poorly marginated nodular lesions, SAMAN. No associated lymphadenopathy, pleural reactive changes (effusions) or calcifications. Discussion: Tuberculosis should be the primary differential but other granulomatous diseases and even malignancy should remain a differential consideration. Strongly recommend consultation with fitness worker for this woman with young infant.
== END 2018-06-02 17:27 | disposition home or self-care (01) ==
LOC: DL.ED 14:18
DX: R07.89 Other chest pain (principal); M54.6 Pain in thoracic spine; R91.8 Other nonspecific abnormal finding of lung field; D64.9 Anemia, unspecified; Z79.899 Other long term (current) drug therapy
CPT/HCPCS: 36415; 71046; 71250; 80053; 84484; 85025; 85379; 93005; 99284

== ENCOUNTER 2021-03-14 05:50 | Observation (INO) | payer BC, OTHER ==
--- NOTE | 2021-03-14 06:07 | EDM.PDOC ---
"<Enrique Fields Lacey - Last Filed: 03/14/21 08:31> ED HPI GENERAL MEDICAL PROBLEM - General Chief Complaint: Flank Pain Stated Complaint: TROUBLE BREATHING Time Seen by Provider: 03/14/21 06:35 Source of Information: Reports: Patient History Limitations: Reports: No Limitations - History of Present Illness INITIAL COMMENTS - FREE TEXT/NARRATIVE: Patient is a 45-year-old female with a past medical history significant for left-sided pulmonary nodule status post bronchiolar lavage/biopsy who presents to the emergency department for right-sided shoulder pain and shortness of breath. Patient notes pain/shortness of breath started 12/2 in the morning. Pain is located over the right shoulder blade and is non-radiating. Pain started gradually in the morning and is progressed to being more severe now. Patient describes the pain as sharp and rated 9/10. Deep breaths and movement make the pain worse. Shallow breaths and rest make the pain better. No trauma or inciting incident causing the pain. Patient also endorses subjective fever yesterday morning when the pain started. Patient has no significant cardiac history. Denies palpitations, cough, hemoptysis, nausea, lightheadedness, diaphoresis, emesis, diarrhea, melena, hematochezia, body aches, and sick contacts. In 2019 patient was seen at [facility] in [place] for a left-sided pulmonary n odule. She underwent bronchoalveolar lavage and transbronchial biopsy. Biopsy did not show any neoplasm or infectious etiology. After the procedure patient's breathing got significantly better. Since 2019 she has had no significant lung problems. Right Mid-Posterior Back Pain Score (Numeric/FACES): 10 - Related Data Allergies Allergy/AdvReac Type Severity Reaction Status Date / Time No Known Allergies Allergy Verified 06/02/18 14:24 Home Meds: Home Meds Docusate Sodium [Colace] 100 mg PO Q12H PRN cap 05/18/17 [Rx] Ferrous Sulfate 325 mg PO BIDMEALS tablet 05/18/17 [Rx] Ibuprofen [IJD: Ibuprofen] 600 mg PO Q6H PRN tablet 05/18/17 [Rx] Cholecalciferol (Vitamin D3) [Vitamin D3] 1,000 units PO DAILY 05/30/18 [History] Multivitamin with Minerals [Multivitamins with Minerals] 1 tab PO DAILY 05/30/18 [History] Past Medical History - Past Health History Medical/Surgical History: Denies Medical/Surgical History (Patient does have left side pulmonary nodule that she had a negative biopsy in 2019) HEENT History: Reports: Impaired Vision Other HEENT History: WEARS GLASSES. 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: Musculoskeletal History: Reports: Other (See Below) Other Musculoskeletal History: NERVE PAIN IN RIGHT WRIST, GOES TO PT Neurological History: Reports: Other (See Below) Other Neuro History: STROKE RIGHT SIDE AT AGE 34 Psychiatric History: Reports: Depression Other Psychiatric History: DEPRESSION IN THE PAST Endocrine/Metabolic History: Reports: None Hematologic History: Reports: Anemia Immunologic History: Reports: None Oncologic (Cancer) History: Reports: None Dermatologic History: Reports: None - Infectious Disease History Infectious Disease History: Reports: Chicken Pox - Past Surgical History HEENT Surgical History: Reports: None Cardiovascular Surgical History: Reports: None GI Surgical History: Reports: None Female Surgical History: Reports: Section Neurological Surgical History: Reports: None Musculoskeletal Surgical History: Reports: None Social & Family History - Family History Family Medical History: No Pertinent Family History Cardiac: Reports: Other (See Below) Other Cardiac Family History: mother- heart disease Respiratory: Reports: Other (See Below) Other Respiratory Family Hisory: first child had TB meningitis as an and at age 12 of complications - Caffeine Use Caffeine Use: Reports: Coffee ED ROS GENERAL - Review of Systems Constitutional: Reports: Fever HEENT: Reports: No Symptoms Respiratory: Reports: Shortness of Breath, Pleuritic Chest Pain Cardiovascular: Reports: No Symptoms Endocrine: Reports: No Symptoms GI/Abdominal: Reports: No Symptoms : Reports: No Symptoms Musculoskeletal: Reports: Shoulder Pain Skin: Reports: No Symptoms Neurological: Reports: No Symptoms Psychiatric: Reports: No Symptoms Hematologic/Lymphatic: Reports: No Symptoms Immunologic: Reports: No Symptoms ED EXAM, GENERAL - Physical Exam Exam Limited By: No Limitations General Appearance: Alert, Mild Distress Eye Exam: Bilateral Eye: EOMI, PERRL Nose: Normal Inspection Throat/Mouth: Normal Inspection Head: Atraumatic Neck: Normal Inspection, Supple, Non-Tender Respiratory/Chest: Lungs Clear, Normal Breath Sounds, No Accessory Muscle Use, Other (Pain to palpation of right shoulder blade) Cardiovascular: Normal Peripheral Pulses, Regular Rate, Rhythm, No Edema, No Gallop, No JVD, No Murmur, No Rub GI/Abdominal: Normal Bowel Sounds, Soft, Non-Tender, No Organomegaly, No Distention Back Exam: Normal Inspection Extremities: Limited Range of Motion (Right upper extremity secondary to pain) Neurological: Alert, Oriented, CN II-XII Intact, Normal Cognition Psychiatric: Normal Affect, Normal Mood Skin Exam: Warm, Dry, Intact Lymphatic: No Adenopathy Course - Re-Assessments/Exams Free Text/Narrative Re-Assessment/Exam: I reviewed the case with Dr. Pendleton 03/14/21 08:31 Departure - Departure Disposition: Refer to Observation Clinical Impression: Right-sided chest wall pain, Acute right flank pain, Intractable pain, Multiple lung nodules - Discharge Information Forms: ED Department Discharge - Problem List & Annotations (1) Dyspnea SNOMED Code(s): 287024832 Code(s): R06.00 - DYSPNEA, UNSPECIFIED Status: Acute (2) Chest wall pain SNOMED Code(s): 743556972 Code(s): R07.89 - OTHER CHEST PAIN Status: Acute - Problem List Review Problem List Initiated/Reviewed/Updated: Yes - Assessment/Plan Assessment:: Patient is a 45 yo female being seen in the ER for dyspnea and right posterior pleuritic chest wall pain. Etiologies for chest pain include but arent limited to pneumonia, PE, covid, costochondritis, pleuritis, NM, and pneumothorax. EKG, troponin, CBC, CMP, and covid testing are within normal limits. Chest xray is unchanged from previous in 2019, no signs of pneumonia or pneumothorax. Plan: For the patient's pleuritic chest pain and dyspnea we will do a cxray, ekg, cbc, cmp, procalcitonin, ddimer, esr, crp, and covid test. Tylenol and toradol were given for pain. If that does not improve pain consider morphine 2 mg. If Ddimer is elevated we will get a CTA to evaluate further for PE. <Augie Pendleton - Last Filed: 03/14/21 13:04> ED HPI GENERAL MEDICAL PROBLEM - General Source of Information: Reports: Patient, Family (), Old Records, Provider (Dr. Rosette Fields, Dr. Rosette Bocanegra), RN, RN Notes Reviewed History Limitations: Reports: No Limitations - History of Present Illness INITIAL COMMENTS - FREE TEXT/NARRATIVE: The pt states the pain began with a very sudden onset in the right posterior chest wall and flank area. She became diaphoretic and nauseated. She believes she had a fever briefly. The pain is worse with movement and breathing. Denies injury. History of left lung nodule/mass that was biopsied in 2019 and found to be benign. ED ROS GENERAL - Review of Systems Review Of Systems: See Below ED EXAM, GENERAL - Physical Exam Exam: See Below #1 Interpretation EKG Date: 03/14/21 Time: 06:37 Rhythm: Other (SR) Rate (Beats/Min): 74 [place]: Normal P-Wave: Present QRS: Normal ST-T: Normal QT: Normal Comparison: NA - No Prior EKG Course - Vital Signs Last Recorded V/S: Last Vital Signs Temp 98.5 F 03/14/21 06:13 Pulse 83 03/14/21 06:13 Resp 18 03/14/21 06:13 BP 129/87 03/14/21 06:13 Pulse Ox 95 03/14/21 06:13 - Orders/Labs/Meds Orders: Active Orders 24 hr Category Date Time Status Admission Diagnosis [ADT] Routine ADT 03/14/21 12:50 Ordered Patient Status [ADT] Routine ADT 03/14/21 12:50 Active CULTURE URINE [RM] Stat Lab 03/14/21 08:56 Received PROCALCITONIN [REF] Stat Lab 03/14/21 06:55 Received Sodium Chloride 0.9% [Saline Flush] Med 03/14/21 08:56 Active 10 ml FLUSH ASDIRECTED PRN Peripheral IV Insertion Adult [OM.PC] Stat Oth 03/14/21 08:56 Ordered Medication Orders Sodium Chloride (Sodium Chloride 0.9% 10 Ml Syringe) 10 ml FLUSH ASDIRECTED PRN PRN Reason: Keep Vein Open Labs: Laboratory Tests 03/14/21 03/14/21 03/14/21 Range/Units 06:30 06:55 06:55 WBC 8.1 (5.0-10.0) 10^3/uL RBC 4.81 (4.2-5.4) 10^6/uL Hgb 12.4 D (12.0-16.0) g/dL Hct 38.8 (37.0-47.0) % MCV 80.7 (80-100) fL MCH 25.8 L (27.0-34.0) pg MCHC 32.0 L (33.0-35.0) g/dL Plt Count 326 (150-450) 10^3/uL Neut % (Auto) 80.9 H (42.2-75.2) % Lymph % (Auto) 10.5 L (20.5-50.1) % [place] % (Auto) 5.8 (2-8) % Eos % (Auto) 2.6 (1.0-3.0) % Baso % (Auto) 0.2 (0.0-1.0) % ESR (0-20) mm/hr D-Dimer, Quantitative (0-400) ng/mL Sodium 140 (136-145) mmol/L Potassium 3.8 (3.5-5.1) mmol/L Chloride 102 (98-107) mmol/L Carbon Dioxide 26 (21-32) mmol/L Anion Gap 15.8 H (7-13) mEq/L BUN 8 (7-18) mg/dL Creatinine 0.82 (0.55-1.02) mg/dL Est Cr Clr Drug Dosing 76.39 mL/min Estimated GFR (MDRD) > 60 BUN/Creatinine Ratio 9.8 (No establ ref range) Glucose 99 (70-99) mg/dL Calcium 9.4 (8.5-10.1) mg/dL Total Bilirubin 0.3 (0.2-1.0) mg/dL AST 23 (15-37) U/L ALT 33 (14-59) U/L Alkaline Phosphatase 80 (46-116) U/L Troponin I High Sens < 4 (<=51) pg/mL C-Reactive Protein (0.0-0.9) mg/dL Total Protein 8.5 H (6.4-8.2) g/dL Albumin 4.1 (3.4-5.0) g/dL Globulin 4.4 Albumin/Globulin Ratio 0.9 Urine Color (YELLOW) Urine Appearance (CLEAR) Urine pH (5.0-9.0) Ur Specific [place] (1.005-1.030) Urine Protein (NEGATIVE) Urine Glucose (UA) (NEGATIVE) Urine Ketones (NEGATIVE) Urine Occult Blood (NEGATIVE) Urine Nitrite (NEGATIVE) Urine Bilirubin (NEGATIVE) Urine Urobilinogen (0.2-1.0) mg/dL Ur Leukocyte Esterase (NEGATIVE) Urine RBC (0-5) /HPF Urine WBC (0-5/HPF) /HPF Ur Epithelial Cells (NOT SEEN) /HPF Urine HCG, Qual SARS-CoV-2 RNA (KEMAL) Negative (NEGATIVE) 03/14/21 03/14/21 03/14/21 Range/Units 06:55 06:55 06:55 WBC (5.0-10.0) 10^3/uL RBC (4.2-5.4) 10^6/uL Hgb (12.0-16.0) g/dL Hct (37.0-47.0) % MCV (80-100) fL MCH (27.0-34.0) pg MCHC (33.0-35.0) g/dL Plt Count (150-450) 10^3/uL Neut % (Auto) (42.2-75.2) % Lymph % (Auto) (20.5-50.1) % [place] % (Auto) (2-8) % Eos % (Auto) (1.0-3.0) % Baso % (Auto) (0.0-1.0) % ESR 24 H (0-20) mm/hr D-Dimer, Quantitative 315 (0-400) ng/mL Sodium (136-145) mmol/L Potassium (3.5-5.1) mmol/L Chloride (98-107) mmol/L Carbon Dioxide (21-32) mmol/L Anion Gap (7-13) mEq/L BUN (7-18) mg/dL Creatinine (0.55-1.02) mg/dL Est Cr Clr Drug Dosing mL/min Estimated GFR (MDRD) BUN/Creatinine Ratio (No establ ref range) Glucose (70-99) mg/dL Calcium (8.5-10.1) mg/dL Total Bilirubin (0.2-1.0) mg/dL AST (15-37) U/L ALT (14-59) U/L Alkaline Phosphatase (46-116) U/L Troponin I High Sens (<=51) pg/mL C-Reactive Protein < 0.2 (0.0-0.9) mg/dL Total Protein (6.4-8.2) g/dL Albumin (3.4-5.0) g/dL Globulin Albumin/Globulin Ratio Urine Color (YELLOW) Urine Appearance (CLEAR) Urine pH (5.0-9.0) Ur Specific [place] (1.005-1.030) Urine Protein (NEGATIVE) Urine Glucose (UA) (NEGATIVE) Urine Ketones (NEGATIVE) Urine Occult Blood (NEGATIVE) Urine Nitrite (NEGATIVE) Urine Bilirubin (NEGATIVE) Urine Urobilinogen (0.2-1.0) mg/dL Ur Leukocyte Esterase (NEGATIVE) Urine RBC (0-5) /HPF Urine WBC (0-5/HPF) /HPF Ur Epithelial Cells (NOT SEEN) /HPF Urine HCG, Qual SARS-CoV-2 RNA (KEMAL) (NEGATIVE) 03/14/21 03/14/21 Range/Units 08:56 08:56 WBC (5.0-10.0) 10^3/uL RBC (4.2-5.4) 10^6/uL Hgb (12.0-16.0) g/dL Hct (37.0-47.0) % MCV (80-100) fL MCH (27.0-34.0) pg MCHC (33.0-35.0) g/dL Plt Count (150-450) 10^3/uL Neut % (Auto) (42.2-75.2) % Lymph % (Auto) (20.5-50.1) % [place] % (Auto) (2-8) % Eos % (Auto) (1.0-3.0) % Baso % (Auto) (0.0-1.0) % ESR (0-20) mm/hr D-Dimer, Quantitative (0-400) ng/mL Sodium (136-145) mmol/L Potassium (3.5-5.1) mmol/L Chloride (98-107) mmol/L Carbon Dioxide (21-32) mmol/L Anion Gap (7-13) mEq/L BUN (7-18) mg/dL Creatinine (0.55-1.02) mg/dL Est Cr Clr Drug Dosing mL/min Estimated GFR (MDRD) BUN/Creatinine Ratio (No establ ref range) Glucose (70-99) mg/dL Calcium (8.5-10.1) mg/dL Total Bilirubin (0.2-1.0) mg/dL AST (15-37) U/L ALT (14-59) U/L Alkaline Phosphatase (46-116) U/L Troponin I High Sens (<=51) pg/mL C-Reactive Protein (0.0-0.9) mg/dL Total Protein (6.4-8.2) g/dL Albumin (3.4-5.0) g/dL Globulin Albumin/Globulin Ratio Urine Color Yellow (YELLOW) Urine Appearance Clear (CLEAR) Urine pH 7.0 (5.0-9.0) Ur Specific [place] 1.020 (1.005-1.030) Urine Protein Negative (NEGATIVE) Urine Glucose (UA) Negative (NEGATIVE) Urine Ketones Negative (NEGATIVE) Urine Occult Blood Negative (NEGATIVE) Urine Nitrite Negative (NEGATIVE) Urine Bilirubin Negative (NEGATIVE) Urine Urobilinogen 0.2 (0.2-1.0) mg/dL Ur Leukocyte Esterase Trace H (NEGATIVE) Urine RBC See note (0-5) /HPF Urine WBC 0-5 (0-5/HPF) /HPF Ur Epithelial Cells Few (NOT SEEN) /HPF Urine HCG, Qual Negative SARS-CoV-2 RNA (KEMAL) (NEGATIVE) Meds: Medications Generic Name Dose Route Start Last Admin Trade Name Freq PRN Reason Stop Dose Admin Sodium Chloride 10 ml 03/14/21 08:56 Sodium Chloride 0.9% 10 Ml Syringe FLUSH ASDIRECTED PRN Keep Vein Open Discontinued Medications Generic Name Dose Route Start Last Admin Trade Name Freq PRN Reason Stop Dose Admin Acetaminophen 650 mg 03/14/21 06:34 03/14/21 06:54 Acetaminophen 325 Mg Tab PO 03/14/21 06:35 650 mg NOW ONE Administration Hydromorphone HCl 0.5 mg 03/14/21 08:56 03/14/21 09:09 Hydromorphone 0.5 Mg/0.5 Ml Syringe IVPUSH 03/14/21 08:57 0.5 mg ONETIME ONE Administration Hydromorphone HCl 1 mg 03/14/21 11:36 03/14/21 11:59 Hydromorphone 1 Mg/Ml Syringe IVPUSH 03/14/21 11:37 1 mg ONETIME ONE Administration Sodium Chloride 1,000 mls @ 999 mls/hr 03/14/21 08:56 03/14/21 09:09 Normal Saline IV 03/14/21 09:56 999 mls/hr .BOLUS ONE Administration Iopamidol 100 ml 03/14/21 09:40 03/14/21 10:47 Iopamidol 612 Mg/Ml 100 Ml Bottle IVPUSH 03/14/21 09:41 100 ml ONETIME ONE Administration Ketorolac Tromethamine 30 mg 03/14/21 06:35 03/14/21 06:56 Ketorolac 30 Mg/Ml Sdv IM 03/14/21 06:36 30 mg ONETIME ONE Administration Ondansetron HCl 4 mg 03/14/21 08:56 03/14/21 09:09 Ondansetron 4 Mg/2 Ml Sdv IV 03/14/21 08:57 4 mg ONETIME ONE Administration Ondansetron HCl 4 mg 03/14/21 09:53 03/14/21 10:11 Ondansetron 4 Mg/2 Ml Sdv IV 03/14/21 09:54 4 mg ONETIME ONE Administration Ondansetron HCl 4 mg 03/14/21 11:37 03/14/21 11:59 Ondansetron 4 Mg/2 Ml Sdv IV 03/14/21 11:38 4 mg ONETIME ONE Administration - Radiology Interpretation Free Text/Narrative:: [facility] Final Radiology Report Call: [phone] assistance Online chat: [email or web address] Name: DANIELA BOLES Age: 45Years F Date: 03/14/2021 SSN: -- : [id number] Study: CR CHEST 2V Requesting Physician: Enrique Fields Images: 2 Addl Studies: Provided Clinical History: SOB and right sided shoulder blade pain Contrast: Contrast Medium: Contrast Amount: Contrast Method: CONFIDENTIALITY STATEMENT This report is intended only for use by the referring physician, and only in accordance with law. If you received this in error, call [phone]. Page 1 of 1 PROCEDURE INFORMATION: Exam: XR Chest Exam date and time: 03/14/2021 7:43 AM Age: 45 years old Clinical indication: Pain; Shortness of breath; Right-sided; Additional info: SOB and right sided shoulder blade pain TECHNIQUE: Imaging protocol: XR of the chest. Views: 2 views. COMPARISON: CR Chest 2V 06/02/2018 2:58 PM FINDINGS: Lungs: There is no focal consolidation but there is an increase in size of a lingular density. It now measures 18 by 8 mm while previously it measured 13 x 6 mm. . Pleural spaces: Unremarkable. No pleural effusion. No pneumothorax. Heart/Mediastinum: Unremarkable. No cardiomegaly. Bones/joints: Unremarkable. IMPRESSION: Increasing size of a left mid lung likely lingular density. Consider nonemergent CT. No focal infiltrate. Thank you for allowing us to participate in the care of your patient. Dictated and Authenticated by: Carlton Capellan MD 03/14/2021 8:58 AM Central Time ([facility] Final Radiology Report Call: [phone] assistance Online chat: [email or web address] Name: DANIELA BOLES Age: 45Years F Date: 03/14/2021 SSN: -- : [id number] Study: CT CHEST ABDOMEN PELVIS W CONT Requesting Physician: AUGIE PENDLETON Images: 326 Addl Studies: [id number] - CT CHEST W (1) Provided Clinical History: Fever, severe pain at Rt post. chest, flank, RUQ Contrast: With Contrast Medium: ISOVUE 300 Contrast Amount: 100 mL Contrast Method: Intravenous (IV) Page 1 of 3 PROCEDURE INFORMATION: Exam: CT Chest With Contrast; Diagnostic Exam date and time: 03/14/2021 10:46 AM Age: 45 years old Clinical indication: Abdominal pain; Localized; Right upper quadrant (ruq); Right-sided; Additional info: Fever, severe pain at RT post. Chest, flank, ruq TECHNIQUE: Imaging protocol: Diagnostic computed tomography of the chest with contrast. Radiation optimization: All CT scans at this facility use at least one of these dose optimization techniques: automated exposure control; mA and/or kV adjustment per patient size (includes targeted exams where dose is matched to clinical indication); or iterative reconstruction. Contrast material: ISOVUE 300; Contrast volume: 100 ml; Contrast route: INTRAVENOUS (IV); COMPARISON: CR Chest 2V 03/14/2021 7:43 AM FINDINGS: Lungs: Left upper lobe perihilar lung nodules measuring 9 and 6 mm. Adjacent airspace disease. Left upper lobe anterior segment irregular bordered nodule measuring 14 mm. Pleural spaces: Unremarkable. No pneumothorax. No pleural effusion. Heart: Unremarkable. No cardiomegaly. No pericardial effusion. Aorta: Unremarkable. No aortic aneurysm. Lymph nodes: Unremarkable. No enlarged lymph nodes. Bones/joints: Unremarkable. No acute fracture. Soft tissues: Unremarkable. IMPRESSION: DANIELA BOLES | Final Radiology Report Page 2 of 3 Multiple left lung nodules.Highly suspicious nodule(s). Consider non-emergent PET/CT, or tissue sampling.(Reference: Jun) REFERENCES: Jun House, et al. Guidelines for Management of Incidental Pulmonary Nodules Detected on CT Images: From the Fleischner Society 2017. Radiology. 2017;284(1):228-243. PROCEDURE INFORMATION: Exam: CT Abdomen And Pelvis With Contrast Exam date and time: 03/14/2021 10:46 AM Age: 45 years old Clinical indication: Abdominal pain; Localized; Right upper quadrant (ruq); Right-sided; Additional info: Fever, severe pain at RT post. Chest, flank, ruq TECHNIQUE: Imaging protocol: Computed tomography of the abdomen and pelvis with contrast. Radiation optimization: All CT scans at this facility use at least one of these dose optimization techniques: automated exposure control; mA and/or kV adjustment per patient size (includes targeted exams where dose is matched to clinical indication); or iterative reconstruction. Contrast material: ISOVUE 300; Contrast volume: 100 ml; Contrast route: INTRAVENOUS (IV); COMPARISON: CR Chest 2V 03/14/2021 7:43 AM FINDINGS: Liver: Fatty infiltration of the liver. No focal hepatic mass. Gallbladder and bile ducts: Normal. No calcified stones. No ductal dilation. Pancreas: Normal. No ductal dilation. Spleen: Normal. No splenomegaly. Adrenal glands: Normal. No mass. Kidneys and ureters: Normal. No hydronephrosis. Stomach and bowel: Unremarkable. No obstruction. No mucosal thickening. Appendix: No evidence of appendicitis. Intraperitoneal space: Unremarkable. No free air. No significant fluid collection. Vasculature: Unremarkable. No abdominal aortic aneurysm. Lymph nodes: Unremarkable. No enlarged lymph nodes. Urinary bladder: Unremarkable as visualized. Reproductive: Retroflexed uterus. IUD present within the endometrium. Left adnexal cyst measuring 20 mm. Bones/joints: Unremarkable. No acute fracture. Soft tissues: Unremarkable. IMPRESSION: 1. No acute findings. 2. Fatty infiltration liver. DANIELA BOLES | Final Radiology Report CONFIDENTIALITY STATEMENT This report is intended only for use by the referring physician, and only in accordance with law. If you received this in error, call [phone]. Page 3 of 3 3. Left adnexal cyst. Thank you for allowing us to participate in the care of your patient. Dictated and Authenticated by: Evert Avila MD 03/14/2021 11:08 AM Central Time ([place] & [place]) - Re-Assessments/Exams Free Text/Narrative Re-Assessment/Exam: 03/14/21 I discussed the case with pt's PCP Dr. Rosette Bocanegra via phone. Dr. Bocanegra agrees to arrange outpatient f/u and referral(s) as needed for further evaluation of the pt's pain and lung masses. 03/14/21 12:00 I explained the exam findings, lab/diagnostic results, chest x-ray, and CT Chest/Abdomen/Pelvis report findings to the pt and her . I had planned to d/c the pt home with Rx for pain medication, and to f/u with Dr. Bocanegra. However, the pt's pain retuned, and was severe enough to make her vomit. Her declined to take her home and asks that she be admitted for pain control. I consulted the hospitalist, Dr. Mcgrath to admit the pt. Free Text/Narrative Re-Assessment/Exam: 03/14/21 08:51 I saw and evaluated the patient. Discussed with resident and agree with residents findings and plan as documented in the residents note. Departure - Departure Time of Disposition: 13:02 (admit to Dr. Mcgrath) Condition: Undetermined - Discharge Information *PRESCRIPTION DRUG MONITORING PROGRAM REVIEWED*: Not Applicable *COPY OF PRESCRIPTION DRUG MONITORING REPORT IN PATIENT DANIAL: Not Applicable Sepsis Event Note (ED) - Focused Exam Vital Signs: Vital Signs Temp Pulse Resp BP Pulse Ox 03/14/21 06:13 98.5 F 83 18 129/87 95 - My Orders Last 24 Hours: My Active Orders 03/14/21 08:56 CULTURE URINE [RM] Stat Sodium Chloride 0.9% [Saline Flush] 10 ml FLUSH ASDIRECTED PRN Peripheral IV Insertion Adult [OM.PC] Stat - Assessment/Plan Last 24 Hours: My Active Orders 03/14/21 08:56 CULTURE URINE [RM] Stat Sodium Chloride 0.9% [Saline Flush] 10 ml FLUSH ASDIRECTED PRN Peripheral IV Insertion Adult [OM.PC] Stat"
[2021-03-14] MEDS ORDERED: Acetaminophen 325 MG Tab PO ONE (06:34)
[2021-03-14] MEDS ORDERED: Ketorolac 30 MG/ML SDV IM ONE (06:35)
[2021-03-14] MEDS ORDERED: LORazepam 2 MG/ML SDV IM ONE (07:12)
[2021-03-14] MEDS ORDERED: Haloperidol Lactate 5 MG/ML SDV IM ONE (07:12)
[2021-03-14] MEDS ORDERED: diphenhydrAMINE 50 MG/ML SDV IM ONE (07:13)
[2021-03-14 07:28] LABS: ANION GAP 15.8 mEq/L (7-13); CHLORIDE,CL 102 mmol/L (98-107); SODIUM,NA 140 mmol/L (136-145)
[2021-03-14] MEDS ORDERED: Sodium Chloride 0.9% 10 ML Syringe FLUSH PRN ×2 (08:56→13:35)
[2021-03-14] MEDS ORDERED: Ondansetron 4 MG/2 ML SDV IV ONE ×3 (08:56→11:37)
[2021-03-14] MEDS ORDERED: Sodium Chloride 0.9% 1,000 ML IV ONE (08:56)
[2021-03-14] MEDS ORDERED: HYDROmorphone 0.5 MG/0.5 ML Syringe IVPUSH ONE (08:56)
--- NOTE | 2021-03-14 08:59 | CR ---
PROCEDURE INFORMATION: Exam: XR Chest Exam date and time: 03/14/2021 7:43 AM Age: 45 years old Clinical indication: Pain; Shortness of breath; Right-sided; Additional info: SOB and right sided shoulder blade pain TECHNIQUE: Imaging protocol: XR of the chest. Views: 2 views. COMPARISON: CR Chest 2V 06/02/2018 2:58 PM FINDINGS: Lungs: There is no focal consolidation but there is an increase in size of a lingular density. It now measures 18 by 8 mm while previously it measured 13 x 6 mm. . Pleural spaces: Unremarkable. No pleural effusion. No pneumothorax. Heart/Mediastinum: Unremarkable. No cardiomegaly. Bones/joints: Unremarkable. IMPRESSION: Increasing size of a left mid lung likely lingular density. Consider nonemergent CT. No focal infiltrate.
[2021-03-14] MEDS ORDERED: Iopamidol 612 MG/ML 100 ML Bottle IVPUSH ONE (09:40)
--- NOTE | 2021-03-14 11:09 | CT ---
PROCEDURE INFORMATION: Exam: CT Chest With Contrast; Diagnostic Exam date and time: 03/14/2021 10:46 AM Age: 45 years old Clinical indication: Abdominal pain; Localized; Right upper quadrant (ruq); Right-sided; Additional info: Fever, severe pain at RT post. Chest, flank, ruq TECHNIQUE: Imaging protocol: Diagnostic computed tomography of the chest with contrast. Radiation optimization: All CT scans at this facility use at least one of these dose optimization techniques: automated exposure control; mA and/or kV adjustment per patient size (includes targeted exams where dose is matched to clinical indication); or iterative reconstruction. Contrast material: ISOVUE 300; Contrast volume: 100 ml; Contrast route: INTRAVENOUS (IV); COMPARISON: CR Chest 2V 03/14/2021 7:43 AM FINDINGS: Lungs: Left upper lobe perihilar lung nodules measuring 9 and 6 mm. Adjacent airspace disease. Left upper lobe anterior segment irregular bordered nodule measuring 14 mm. Pleural spaces: Unremarkable. No pneumothorax. No pleural effusion. Heart: Unremarkable. No cardiomegaly. No pericardial effusion. Aorta: Unremarkable. No aortic aneurysm. Lymph nodes: Unremarkable. No enlarged lymph nodes. Bones/joints: Unremarkable. No acute fracture. Soft tissues: Unremarkable. IMPRESSION: Multiple left lung nodules.Highly suspicious nodule(s). Consider non-emergent PET/CT, or tissue sampling.(Reference: Jun) REFERENCES: Jun oHuse et al. Guidelines for Management of Incidental Pulmonary Nodules Detected on CT Images: From the Fleischner Society 2017. Radiology. 2017;284(1):228-243. PROCEDURE INFORMATION: Exam: CT Abdomen And Pelvis With Contrast Exam date and time: 03/14/2021 10:46 AM Age: 45 years old Clinical indication: Abdominal pain; Localized; Right upper quadrant (ruq); Right-sided; Additional info: Fever, severe pain at RT post. Chest, flank, ruq TECHNIQUE: Imaging protocol: Computed tomography of the abdomen and pelvis with contrast. Radiation optimization: All CT scans at this facility use at least one of these dose optimization techniques: automated exposure control; mA and/or kV adjustment per patient size (includes targeted exams where dose is matched to clinical indication); or iterative reconstruction. Contrast material: ISOVUE 300; Contrast volume: 100 ml; Contrast route: INTRAVENOUS (IV); COMPARISON: CR Chest 2V 03/14/2021 7:43 AM FINDINGS: Liver: Fatty infiltration of the liver. No focal hepatic mass. Gallbladder and bile ducts: Normal. No calcified stones. No ductal dilation. Pancreas: Normal. No ductal dilation. Spleen: Normal. No splenomegaly. Adrenal glands: Normal. No mass. Kidneys and ureters: Normal. No hydronephrosis. Stomach and bowel: Unremarkable. No obstruction. No mucosal thickening. Appendix: No evidence of appendicitis. Intraperitoneal space: Unremarkable. No free air. No significant fluid collection. Vasculature: Unremarkable. No abdominal aortic aneurysm. Lymph nodes: Unremarkable. No enlarged lymph nodes. Urinary bladder: Unremarkable as visualized. Reproductive: Retroflexed uterus. IUD present within the endometrium. Left adnexal cyst measuring 20 mm. Bones/joints: Unremarkable. No acute fracture. Soft tissues: Unremarkable. IMPRESSION: 1. No acute findings. 2. Fatty infiltration liver. 3. Left adnexal cyst.
[2021-03-14] MEDS ORDERED: HYDROmorphone 1 MG/ML Syringe IVPUSH ONE (11:36)
[2021-03-14] MEDS ORDERED: Ondansetron 4 MG Tab.DIS PO PRN (13:35)
[2021-03-14] MEDS ORDERED: Docusate Sodium 100 MG Cap PO PRN ×2 (13:35→16:39)
[2021-03-14] MEDS ORDERED: oxyCODONE 5 MG Tab PO PRN ×2 (13:35→19:55)
[2021-03-14] MEDS ORDERED: HYDROmorphone 0.5 MG/0.5 ML Syringe IVPUSH PRN (13:35)
[2021-03-14] MEDS ORDERED: LORazepam 2 MG/ML SDV IVPUSH PRN (13:35)
[2021-03-14] MEDS ORDERED: Temazepam 15 MG Cap PO PRN (13:35)
[2021-03-14] MEDS ORDERED: Cyclobenzaprine 10 MG Tab PO PRN (14:36)
[2021-03-14] MEDS: Lactated Ringers 1,000 ML IV SCH ×2 (15:26→22:47)
[2021-03-14] MEDS ORDERED: Dexamethasone 4 MG/ML SDV IVPUSH ONE (16:17)
[2021-03-14] MEDS ORDERED: Azithromycin 200 MG/5 ML Susp 30 ML Bottle NGTUBE SCH (19:00)
[2021-03-14] MEDS ORDERED: cefTRIAXone 1 GM in Sodium Chloride 0.9% 50 ML IV SCH (19:00)
[2021-03-14] MEDS ORDERED: Ketorolac 30 MG/ML SDV IVPUSH PRN (20:50)
[2021-03-14] MEDS ORDERED: Pantoprazole 40 MG Tab.CR PO SCH (21:00)
[2021-03-14] MEDS ORDERED: Lidocaine 5% 700 MG Patch TOP SCH (21:00)
--- NOTE | 2021-03-14 23:45 | HP ---
HISTORY OF PRESENT ILLNESS: The patient is a 45-year-old female, who presented to emergency room today because of chest pain localized in the right lower chest posterior. Pain is so severe, 10/10 in intensity. It started yesterday around 8 a.m. and the pain is triggered by taking a deep breath. Also, by sudden movements of her body. The pain is not radiating. The patient received pain medication in the emergency room and Toradol and the pain decreased to 7/10 in intensity. After she received the pain medication, the patient was nauseated. She denies any palpitation, cough, hemoptysis, diarrhea, melena, hematochezia, body aches, sick contacts. In 2019, the patient was seen at the [facility] in [place] when she had an incidental finding of left-sided pulmonary nodule. At that time, she found back pain localized in the right shoulder and she underwent bronchoalveolar lavage and transbronchial biopsy. Biopsy did not show any neoplastic or infectious etiology. After the procedure, the patient's breathing got significantly better. Since 2019, she has had no significant lung problems. The patient is originally from [facility]. She denies any weight loss, unintentional, and no history of smoking or exposure to any chemicals. PAST SURGICAL HISTORY: She has only a transbronchial biopsy of the left-sided pulmonary nodule that was negative in 2019. PAST MEDICAL HISTORY: She has impaired vision and wears glasses. The patient also had a stroke on right side at age 34 with complete resolution of her symptoms, and also has history of hyperlipidemia and nerve pain in right wrist and she goes to physical therapy. Depression in the past, anemia. FAMILY SURGICAL HISTORY: None. FEMALE SURGICAL HISTORY: section. FAMILY HISTORY: Her mom at age 48 of GI bleed and her father in his 50s of stomach cancer and also had stomach ulcer. RESPIRATORY FAMILY HISTORY: First child had TB meningitis as an and at age 10 of complications. REVIEW OF SYSTEMS: 12-point review of system is negative except as in history of present illness. She has shortness of breath and pleuritic chest pain. PHYSICAL EXAMINATION: Vital Signs: At admission, her temperature 97.4, pulse 71, blood pressure 115/74, respiratory rate 16, oxygen saturation 99%. HEENT: Her head is atraumatic, normocephalic. Pupils reactive to light. Neck: Supple. No thyromegaly. No lymphadenopathy. There is no tenderness to palpation on the right thorax and the patient can move her right arm without any pain. Deep breath triggers significant pain to the patient. Lungs: Clear to auscultation bilaterally. Heart: S1, S2. Regular rhythm and rate. No murmurs. Abdomen: Soft, nontender. Positive bowel sounds. Extremities: No edema. Neurologic: The patient is alert, oriented x3. There are no gross focal neurological deficits. LABORATORY DATA: At admission, WBC 8.1, hemoglobin 12.4, hematocrit 38.8, platelet count 326, neutrophils 18.9, lymphocytes are 10.5, monocytes 5.8, eosinophils 2.6, ESR 24, basophils 0.2. D-dimer quantitative 315. Sodium 140, potassium 2.8, chloride 102, carbon dioxide 26, anion gap 15.8, BUN 8, creatinine 0.82, and GFR more than 60. Glucose 108, calcium 9.4, bilirubin 0.3, AST 23, ALT 33, alkaline phosphatase 80. Troponin less than 4. C-reactive protein less than 0.2. Total protein 8.5 with a globulin 4.4, albumin 4.1. Urinalysis was remarkable for trace leukocyte esterase and wbc was . SARS COVID was negative. Chest x-raydone showed lungs, there is no focal consolidation, but there is an increase in size in lingual density. It now measures 18 x 8 mm while previously it measured only 13 x 6 mm. Pleural space is unremarkable. No pleural effusions. No pneumothorax. Heart, mediastinum are unremarkable. No cardiomegaly. Bones, joints unremarkable. Impression: Increase in size of left mid lung, likely lingular density, consider nonemergent CT. No focal infiltrate. CT of the abdomen with the following findings. Left upper lobe, perihilar lung nodules measuring 9 and 6 mm, adjacent airspace disease. Left upper lobe anterior segment, irregular border nodule measuring 14 mm. Pleural spaces unremarkable. Heart unremarkable. Aorta unremarkable. Lymph nodes unremarkable. Bones, joints unremarkable. Soft tissue unremarkable. Impression: Multiple left lung nodules. Highly suspicious nodule. Consider nonemergent PET-CT or tissue sampling. Regarding finding of the liver, fatty infiltration of the liver. No focal hepatic mass. Gallbladder and bile ducts are normal. Pancreas normal. Spleen normal. Adrenal glands normal. Kidney and uterus normal. Stomach and bowel unremarkable. Appendix, no evidence of appendicitis. Impression: No acute findings. Fatty infiltration of the liver. Left adnexal cyst. ASSESSMENT AND PLAN: A 45-year-old female with prior history of lung nodule status post biopsy with no malignancy finding, presented to emergency room with right lower chest pain, pleuritic, that started yesterday morning. CT abdomen, chest, and pelvis remarkable for increase in size of this nodule and also finding of adjacent airspace disease. The patient's D-dimer was negative, which rules out pulmonary embolus. Will treat the patient for pleuritic chest pain as costochondritis and we will give the patient muscle relaxants such as Toradol 30 mg IV q.6 hours and Flexeril 10 mg p.o. 3 times a day. For possible airspace disease, we will start the patient on ceftriaxone and azithromycin and will follow up on chest x-ray to see if there is any resolution of her symptoms. Will do also blood cultures. If procalcitonin is negative, then we will discontinue antibiotics. Procalcitonin was sent from emergency room. Her pneumonia showed that it is likely community acquired according to the chest CT. For pulmonary nodules, the patient has to follow up with [facility] with Pulmonology and to have a PET CT as outpatient to be considered. DVT prophylaxis, the patient will get Lovenox 40 mg subcutaneous q.24 hours. GI prophylaxis, the patient will get Protonix 40 mg p.o. daily. Also, for back pain, the patient was given dexamethasone 4 mg IV 1 dose. [facility] /[id number]
[2021-03-15] MEDS: Acetaminophen 325 MG Tab PO PRN ×2 (04:15→11:31)
[2021-03-15 07:09] LABS: ANION GAP 16.1 mEq/L (7-13); CHLORIDE,CL 106 mmol/L (98-107); SODIUM,NA 142 mmol/L (136-145)
[2021-03-15] MEDS: Lactated Ringers 1,000 ML IV SCH (07:25)
[2021-03-15] MEDS ORDERED: Enoxaparin 40 MG/0.4 ML Syringe SUBCUT SCH (09:00)
[2021-03-15] MEDS ORDERED: Multivitamin Tab PO SCH (09:00)
--- NOTE | 2021-03-15 12:50 | PCM.DCSUM1 ---
Discharge Summary - Hospital Course Brief History: see below Diagnosis: Stroke: No - Discharge Data Discharge Date: 03/15/21 Discharge Disposition: Home, Self-Care 01 Condition: Good - Referral to Home Health Primary Care Physician: PCP None - Patient Instructions Diet: Usual Diet as Tolerated Activity: As Tolerated Driving: May Drive Today Showering/Bathing: August Shower - Discharge Plan *PRESCRIPTION DRUG MONITORING PROGRAM REVIEWED*: Not Applicable *COPY OF PRESCRIPTION DRUG MONITORING REPORT IN PATIENT DANIAL: Not Applicable Prescriptions/Med Rec: Cyclobenzaprine [Flexeril] 10 mg PO Q8H PRN #15 tablet PRN Reason: Pain Home Medications: Home Meds Docusate Sodium [Colace] 100 mg PO Q12H PRN cap 05/18/17 [Rx] Ferrous Sulfate 325 mg PO BIDMEALS tablet 05/18/17 [Rx] Ibuprofen [IJD: Ibuprofen] 600 mg PO Q6H PRN tablet 05/18/17 [Rx] Multivitamin with Minerals [Multivitamins with Minerals] 1 tab PO DAILY 05/30/18 [History] Acetaminophen [Tylenol] 650 mg PO Q6H PRN tablet 03/15/21 [Rx] Cyclobenzaprine [Flexeril] 10 mg PO Q8H PRN #15 tablet 03/15/21 [Rx] Enoxaparin [Lovenox] 40 mg SUBCUT DAILY syringe 03/15/21 [Rx] Oxygen Therapy Mode: Room Air Forms: ED Department Discharge - Discharge Summary/Plan Comment DC Time >30 min.: Yes Total # of Minutes for Discharge Time: 45 Discharge Summary/Plan Comment: Patient is a 45-year-old female with a past medical history significant for left-sided pulmonary nodule status post bronchiolar lavage/biopsy who presented to the emergency department for right-sided shoulder pain and shortness of breath. PMH significant for left sided pulmonary nodule worked up in 2019 at [facility] in [place], she underwent bronchoalveolar lavage and transbronchial biopsy. Biopsy did not show any neoplasm or infectious etiology. After the procedure patient's breathing got significantly better. Since 2019 she has had no significant lung problems. evaluation in the ED was benign. She was afebrile and hemodynamically stable. she was admitted to the hospital for observation and pain control. During her physical exam she was noted to have a 2/6 systolic murmur loudest at her LSB. this will need evaluation as an outpatient by her PCP. She was monitored overnight and remained on room air, hemodynamically stable, with acetaminophen controlling her pain. She was thought to be medically stable for discharge on the afternoon of 03/15/21. All questions and concerns were addressed at bedside prior to discharge likely rib displacement: - follow up with primary care within one week - will need PCP evaluation of 2/6 systolic murmur - recommend evaluation and treatment by chiropractor for likely rib displacement. New 2/6 systolic heart murmur: - follow up with PCP - will require outpatient echo - General Info Date of Service: 03/15/21 Functional Status: Reports: Pain Controlled Numeric/FACES Score: 5 (better with acetaminophen ) - Review of Systems General: Reports: No Symptoms HEENT: Reports: No Symptoms Pulmonary: Reports: Pleuritic Chest Pain (mild, right sided, deep inspirationatory only) Cardiovascular: Reports: No Symptoms Gastrointestinal: Reports: No Symptoms Genitourinary: Reports: No Symptoms Musculoskeletal: Reports: Other (pain between right shoulder blade and spine) Skin: Reports: No Symptoms Neurological: Reports: No Symptoms Psychiatric: Reports: No Symptoms - Patient Data Vitals - Most Recent: Last Vital Signs Temp 99.9 F 03/15/21 07:46 Pulse 92 03/15/21 07:46 Resp 20 03/15/21 07:46 BP 120/79 03/15/21 07:46 Pulse Ox 99 03/15/21 07:46 Weight - Most Recent: 136 lb I&O - Last 24 hours: Intake & Output 03/14/21 03/15/21 03/15/21 22:59 06:59 14:59 Intake Total 200 400 200 Balance 200 400 200 Lab Results - Last 24 hrs: Laboratory Results - last 24 hr 03/14/21 03/14/21 03/15/21 Range/Units 06:55 16:49 05:55 Sodium 142 (136-145) mmol/L Potassium 4.1 (3.5-5.1) mmol/L Chloride 106 (98-107) mmol/L Carbon Dioxide 24 (21-32) mmol/L Anion Gap 16.1 H (7-13) mEq/L BUN 9 (7-18) mg/dL Creatinine 0.87 (0.55-1.02) mg/dL Est Cr Clr Drug Dosing 61.40 mL/min Estimated GFR (MDRD) > 60 BUN/Creatinine Ratio 10.3 (No establ ref range) Glucose 118 H (70-99) mg/dL POC Glucose 108 H (70-99) mg/dL Calcium 9.1 (8.5-10.1) mg/dL Total Bilirubin 0.5 (0.2-1.0) mg/dL AST 28 (15-37) U/L ALT 33 (14-59) U/L Alkaline Phosphatase 67 (46-116) U/L Total Protein 7.2 (6.4-8.2) g/dL Albumin 3.4 (3.4-5.0) g/dL Globulin 3.8 Albumin/Globulin Ratio 0.9 Procalcitonin <0.05 ng/mL 03/15/21 03/15/21 Range/Units 07:53 08:14 Sodium (136-145) mmol/L Potassium (3.5-5.1) mmol/L Chloride (98-107) mmol/L Carbon Dioxide (21-32) mmol/L Anion Gap (7-13) mEq/L BUN (7-18) mg/dL Creatinine (0.55-1.02) mg/dL Est Cr Clr Drug Dosing mL/min Estimated GFR (MDRD) BUN/Creatinine Ratio (No establ ref range) Glucose (70-99) mg/dL POC Glucose 126 H 114 H (70-99) mg/dL Calcium (8.5-10.1) mg/dL Total Bilirubin (0.2-1.0) mg/dL AST (15-37) U/L ALT (14-59) U/L Alkaline Phosphatase (46-116) U/L Total Protein (6.4-8.2) g/dL Albumin (3.4-5.0) g/dL Globulin Albumin/Globulin Ratio Procalcitonin ng/mL Med Orders - Current: Current Medications Acetaminophen (Acetaminophen 325 Mg Tab) 650 mg PO Q6H PRN PRN Reason: fever Last Admin: 03/15/21 11:31 Dose: 650 mg Documented by: Cyclobenzaprine HCl (Cyclobenzaprine 10 Mg Tab) 10 mg PO Q8H PRN PRN Reason: Pain Last Admin: 03/14/21 18:42 Dose: 10 mg Documented by: Docusate Sodium (Docusate Sodium 100 Mg Cap) 100 mg PO Q12H PRN PRN Reason: Constipation Enoxaparin Sodium (Enoxaparin 40 Mg/0.4 Ml Syringe) 40 mg SUBCUT DAILY [facility] Last Admin: 03/15/21 08:37 Dose: 40 mg Documented by: Lactated Ringer's (Ringers, Lactated) 1,000 mls @ 125 mls/hr IV ASDIRECTED [facility] Last Admin: 03/15/21 07:25 Dose: 125 mls/hr Documented by: Ketorolac Tromethamine (Ketorolac 30 Mg/Ml Sdv) 30 mg IVPUSH Q6H PRN PRN Reason: Pain (severe 7-10) Stop: 03/19/21 20:51 Lidocaine (Lidocaine 5% 700 Mg Patch) 700 mg TOP Q24H [facility] Last Admin: 03/14/21 21:06 Dose: 700 mg Documented by: Miscellaneous Information (Remove Lidocaine Patch) 1 ea TRDERM Q24H [facility] Last Admin: 03/15/21 08:38 Dose: 1 ea Documented by: Multivitamins/Minerals/Vitamin C (Multivitamin Tab) 1 tab PO DAILY [facility] Last Admin: 03/15/21 08:37 Dose: 1 tab Documented by: Ondansetron HCl (Ondansetron 4 Mg Tab.Dis) 4 mg PO Q4H PRN PRN Reason: nausea, able to take PO Oxycodone HCl (Oxycodone 5 Mg Tab) 5 mg PO Q8H PRN PRN Reason: Pain (moderate 4-6) Pantoprazole Sodium (Pantoprazole 40 Mg Tab.Cr) 40 mg PO BEDTIME [facility] Last Admin: 03/14/21 21:06 Dose: 40 mg Documented by: Sodium Chloride (Sodium Chloride 0.9% 10 Ml Syringe) 10 ml FLUSH ASDIRECTED PRN PRN Reason: Keep Vein Open Temazepam (Temazepam 15 Mg Cap) 15 mg PO BEDTIME PRN PRN Reason: Sleep Discontinued Medications Acetaminophen (Acetaminophen 325 Mg Tab) 650 mg PO NOW ONE Stop: 03/14/21 06:35 Last Admin: 03/14/21 06:54 Dose: 650 mg Documented by: Azithromycin (Azithromycin 200 Mg/5 Ml Susp 30 Ml Bottle) 500 mg NGTUBE Q24H [facility] Last Admin: 03/15/21 04:23 Dose: Not Given Documented by: Dexamethasone (Dexamethasone 4 Mg/Ml Sdv) 4 mg IVPUSH ONETIME ONE Stop: 03/14/21 16:18 Last Admin: 03/14/21 17:49 Dose: 4 mg Documented by: Docusate Sodium (Docusate Sodium 100 Mg Cap) 100 mg PO BID PRN PRN Reason: Constipation Hydromorphone HCl (Hydromorphone 0.5 Mg/0.5 Ml Syringe) 0.5 mg IVPUSH ONETIME ONE Stop: 03/14/21 08:57 Last Admin: 03/14/21 09:09 Dose: 0.5 mg Documented by: Hydromorphone HCl (Hydromorphone 1 Mg/Ml Syringe) 1 mg IVPUSH ONETIME ONE Stop: 03/14/21 11:37 Last Admin: 03/14/21 11:59 Dose: 1 mg Documented by: Hydromorphone HCl (Hydromorphone 0.5 Mg/0.5 Ml Syringe) 0.5 mg IVPUSH Q2H PRN PRN Reason: Pain (severe 7-10) Sodium Chloride (Normal Saline) 1,000 mls @ 999 mls/hr IV .BOLUS ONE Stop: 03/14/21 09:56 Last Admin: 03/14/21 09:09 Dose: 999 mls/hr Documented by: Ceftriaxone Sodium 1 gm/ (Sodium Chloride) 50 mls @ 100 mls/hr IV Q24H [facility] Last Admin: 03/15/21 04:22 Dose: Not Given Documented by: Iopamidol (Iopamidol 612 Mg/Ml 100 Ml Bottle) 100 ml IVPUSH ONETIME ONE Stop: 03/14/21 09:41 Last Admin: 03/14/21 10:47 Dose: 100 ml Documented by: Ketorolac Tromethamine (Ketorolac 30 Mg/Ml Sdv) 30 mg IM ONETIME ONE Stop: 03/14/21 06:36 Last Admin: 03/14/21 06:56 Dose: 30 mg Documented by: Lorazepam (Lorazepam 2 Mg/Ml Sdv) 1 mg IVPUSH Q6H PRN PRN Reason: Anxiety Ondansetron HCl (Ondansetron 4 Mg/2 Ml Sdv) 4 mg IV ONETIME ONE Stop: 03/14/21 08:57 Last Admin: 03/14/21 09:09 Dose: 4 mg Documented by: Ondansetron HCl (Ondansetron 4 Mg/2 Ml Sdv) 4 mg IV ONETIME ONE Stop: 03/14/21 09:54 Last Admin: 03/14/21 10:11 Dose: 4 mg Documented by: Ondansetron HCl (Ondansetron 4 Mg/2 Ml Sdv) 4 mg IV ONETIME ONE Stop: 03/14/21 11:38 Last Admin: 03/14/21 11:59 Dose: 4 mg Documented by: Oxycodone HCl (Oxycodone 5 Mg Tab) 5 mg PO Q4H PRN PRN Reason: Pain (moderate 4-6) Sodium Chloride (Sodium Chloride 0.9% 10 Ml Syringe) 10 ml FLUSH ASDIRECTED PRN PRN Reason: Keep Vein Open - Exam Quality Assessment: Reports: DVT Prophylaxis. Denies: Supplemental Oxygen General: Reports: Alert, Oriented, No Acute Distress HEENT: Reports: EOMI Neck: Reports: Supple, No JVD Lungs: Reports: Clear to Auscultation, Normal Respiratory Effort. Denies: Decreased Breath Sounds, Rales, Rhonchi, Wheezing Cardiovascular: Reports: Regular Rate, Regular Rhythm, Murmurs (2/6 systolic at LSB) GI/Abdominal Exam: Soft, Non-Tender (Female) Exam: Deferred Rectal (Female) Exam: Deferred Back Exam: Reports: Normal Inspection, Full Range of Motion, Paraspinal Tenderness (right side posterior pain on palpation of ~T4-6 paraspinal muscles. ) Extremities: Normal Inspection, Normal Range of Motion Skin: Reports: Warm, Dry Neurological: Reports: No New Focal Deficit Psy/Mental Status: Reports: Normal Affect, Normal Mood *Q Meaningful Use (DIS) - VTE *Q VTE Mechanical Contraindications *Q: Tx/Proc Refused byPt VTE Pharmacological Contraindications *Q: Tx/Proc Refused by Pt VTE Anticoagulation Contraindications: Tx/proc Refused by PT - Stroke *Q Aspirin Contraindications Stroke *Q: Patient Refusal Anticoagulation Contraindications Stroke *Q: TX/PROC Refused by PT Antithrombotic Contraindications Stroke *Q: TX/PROC Refused by PT Statin Contraindications Stroke *Q: TX/PROC Refused by PT Rehabilitation Assessment Contraindication *Q: Tx/proc refused by pt - AMI *Q Aspirin Contraindications AMI *Q: TX/PROC Refused by PT Statin Contraindications AMI *Q: TX/Proc Refused by PT
--- NOTE | 2021-03-15 20:52 | HP ---
ADDENDUM: As the patient did not have cough and CRP is low and no fever, will hold antibiotics, ceftriaxone and azithromycin, and will follow up procalcitonin, and will observe for fever. Despite the findings on the CT scan of air space disease, would like to hold on antibiotics right now. [facility] /[id number]
== END 2021-03-15 14:00 | disposition home or self-care (01) ==
LOC: DL.ED 05:50 → DL.MS 13:26
PROVIDERS: ADMIT Internal Medicine; ATTEND Internal Medicine
DX: R91.1 Solitary pulmonary nodule (principal); Z79.899 Other long term (current) drug therapy; Z98.890 Other specified postprocedural states; Z86.73 Personal history of transient ischemic attack (TIA), and cerebral infarction without residual deficits; Z20.822 Contact with and (suspected) exposure to COVID-19
CPT/HCPCS: 36415; 71046; 71260; 74177; 80053; 81001; 81025; 82947; 84145; 84484; 85025; 85379; 85651; 86140; 87040; 87086; 87088; 93005; 96372; 96374; 96375; 96376; 99285-25; A9270-GY; G0378; J1100; J1170; J1650; J1885; J2405; J7030; J7120; Q9967; U0002

== ENCOUNTER 2022-01-21 12:22 | Emergency (ER) | payer OTHER ==
[2022-02-15 11:07] LABS: ANION GAP 13.2 mEq/L (7-13); CHLORIDE,CL 105 mmol/L (98-107); ESTIMATED GFR 104 mL/min (>=60); SODIUM,NA 142 mmol/L (136-145)
== END 2022-01-22 14:22 | disposition home or self-care (01) ==
LOC: DL.ED 12:22
DX: F41.9 Anxiety disorder, unspecified (principal)
CPT/HCPCS: 36415; 71045; 80053; 84484; 85027; 93005; 99283